=== PATIENT | female | born 1945 | race Caucasian/White ===

== ENCOUNTER 2019-02-07 06:51 | Day surgery (SDC) | payer MEDICARE, OTHER ==
[2019-02-06 13:23] VITALS: BMI 37.8
[2019-02-07 08:18] VITALS: BP 130/65; TEMP 97
--- NOTE | 2019-02-07 08:24 | RAD ---
FExam: 3 views cervical spine HISTORY: Cervical radiculopathy COMPARISON: None FINDINGS: Lateral flexion, lateral extension and lateral neutral views demonstrate moderate to severe degenerative disc disease at C3-C4, C4-C5 and C5-C6. The entirety of the cervical spine is not adequ ately assessed on this examination. Straightening of normal cervical adenosis. No significant spondylolisthesis. No malalignment upon ext ension or flexion Predental space is normal No prevertebral soft tissue swelling IMPRESSION: Multilevel degenerative disc disease in the visualized upper to mid cervical spine.
--- NOTE | 2019-02-07 08:37 | RAD ---
FXR Lumbar Spine 2 Or 3 View History: [Radiculopathy] Comparison: Lumbar spine CT December 29 2018 Findings: Mild degenerative narrowing of the disc spaces throughout the lumbar spine. There is also n arrowing of the interspinous spaces. No acute fracture. No translation with flexion or extension. No listhesis. Moderate vascular calcifications. Impression: No translation with flexion or extension. Moderate degenerative changes.
[2019-02-07] MEDS ORDERED: Prevnar 13-Val Conj/PF 0.5 ML SYRINGE IM ONE (09:00)
--- NOTE | 2019-02-07 09:14 | RAD ---
FExam: Cervical and lumbar myelogram Exposure: 1.3 minutes, 442.5 mGy*M^2 FINDINGS: Single view cervical spine and lumbar spine machine stacker radiographs demonstrate multilevel degene rative change. Successful lumbar puncture for intrathecal contrast administration. A total of 9 mL of Isovue-M 300 c ontrast was administered intrathecally. No immediate or postprocedure complications TECHNIQUE: Consent obtained to perform a lumbar puncture for cervical and lumbar myelogram. The L2-L3 level was deemed appropriate. Skin was prepped and draped in sterile fashion. 1% lidocaine, buffered with sodium bicarbonate, was used for local anesthesia. Under fluoroscopic guidance, a 22-gauge spin al needle was advanced into the CSF space. There was prompt flow of clear CSF to the hub of the needl e. Via a short tubing catheter, a total of 9 mL of Isovue-M 300 contrast was administered intrathecal ly. No immediate or postprocedure complications IMPRESSION: Successful lumbar puncture for cervical and thoracic myelogram. Transcribed Date/Time: 02/07/2019 9:28 AM
[2019-02-07] MEDS ORDERED: Iopamidol-M 300 61% 15 ML VIAL ONE (09:37)
--- NOTE | 2019-02-07 09:41 | CT ---
FExam: Post myelogram cervical spine CT HISTORY:Cervical radiculopathy. COMPARISON: None Colon Cervical spine CT is performed in the axial length. Three-dimensional reformatted images are submitte d FINDINGS: Visualized brain parenchyma is unremarkable Adequate aeration visualized sinuses Mass effect upon the posterior right hypopharynx due to medial deviation of the in internal carotid a rtery. There is mass effect upon the posterior left and right supraglottic larynx secondary to medial deviation of bilateral common carotid arteries Enlarged left level II lymph node/periparotid lymph node measuring 0.8 x 1.8 cm Upper mediastinum and lung apices are clear. Cervical spine vertebral body height is maintained. No fracture. Appropriate alignment of the latera l masses of C1 and C2 as well as the facets. Intact odontoid process C2-C3: Broad-based disc osteophyte complex. Mild central canal stenosis. Neural foramina are patent C3-C4: Broad-based disc osteophyte complex. Mild central canal stenosis. Neural foramina are patent C4-C5:Broad-based disc osteophyte complex. Deformity of the ventral thecal sac. Minimal indentation o f the ventral cord. Mild central canal stenosis. Right neural foramen is mildly narrowed due to uncal vertebral hypertrophy. Moderate to severe left foraminal narrowing due to uncal vertebral hypertroph y. C5-C6: Broad-based disc osteophyte complex abuts the thecal sac. Mild central canal stenosis. Neural foramina are patent C6-C7:No significant central canal stenosis. Right neural foramen is patent. Mild left foraminal narr owing. C7-T: No significant central canal stenosis or neural foraminal narrowing. IMPRESSION: 1.Degenerative changes of the cervical spine as detailed above. Moderate to severe left foraminal alva rowing at C4-C5. No evidence of high-grade central canal stenosis. Transcribed Date/Time: 02/07/2019 9:48 AM
--- NOTE | 2019-02-07 09:43 | CT ---
FContrast-enhanced CT images of chest, abdomen and pelvis. History of pancreatic tail mass. Comparison made to previous CT of the abdomen from 12/13/[address] chest from 11/29/2018. Contrast-enhanced CT images of chest, abdomen and pelvis demonstrates no definite evidence of lung pa renchymal masses. Areas of lung scarring seen in the right lower lobe posteriorly. The patient has had interval placement of a right jugular Mediport catheter. No evidence of mediastinal, axillary or hilar lymphadenopathy seen. There is interval development of a small amount of free intraperitoneal fluid. Anterior abdominal wall incision has been performed. Continues to be an area of ill-defined density in the pancreatic tail. This may represent postoperati ve changes or residual mass with surrounding fat invasion. The adrenal glands are unremarkable. Cortical cyst seen in the lower pole the left kidney. Some thickening seen in some of the small bowel loops possibly due to surrounding postoperative murray es and/or enteritis. No definite evidence of lymphadenopathy seen. IMPRESSION: Postsurgical changes involving the pancreatic tail.
== END 2019-02-07 10:20 | disposition home or self-care (01) ==
LOC: RAD 06:51 → EDSTATUS 08:00 → RAD 10:20
PROVIDERS: ATTEND Neurological Surgery
PROC: B01B1ZZ Fluoroscopy of Spinal Cord using Low Osmolar Contrast (ICD-10-PCS; principal; 2019-02-07)
DX: M47.22 Other spondylosis with radiculopathy, cervical region (principal); M50.11 Cervical disc disorder with radiculopathy, high cervical region; M47.26 Other spondylosis with radiculopathy, lumbar region; M48.061 Spinal stenosis, lumbar region without neurogenic claudication; E03.9 Hypothyroidism, unspecified; I10 Essential (primary) hypertension; J44.9 Chronic obstructive pulmonary disease, unspecified; F31.9 Bipolar disorder, unspecified; E66.9 Obesity, unspecified; Z68.37 Body mass index [BMI] 37.0-37.9, adult; Z87.891 Personal history of nicotine dependence; Z79.899 Other long term (current) drug therapy; Z95.0 Presence of cardiac pacemaker
CPT/HCPCS: 62305; 72040; 72100; 72126; 72132; Q9967

== ENCOUNTER 2019-04-06 05:56 | Inpatient (IN) | payer MEDICARE, OTHER ==
[2019-04-05 12:18] VITALS: BMI 36.3
--- NOTE | 2019-04-06 01:01 | HP ---
This is Eboni Castro PA-C dictating a report for Terry Win MD. HISTORY OF PRESENT ILLNESS: Ms. Rodriguez is a 73-year-old female who presents to our office for evaluation of low back pain, left greater than right leg pain. The patient states that in May, she tripped over the edge of a when started her low back pain and she has had SI injections, physical therapy, home health and she is using a walker since the original fall for imbalance. She states that her hands are working well, but denies neck pain. She has SI tenderness and greater trochanteric bursa pain. She states that following her injection, her back pain is feeling a little better. However, more recently, she is having L5 radiculopathy bilaterally, left greater than right, numbness, tingling and weakness in dorsiflexion of EHL. Her ability to walk safely is concerning. The results of her myelogram are back and she is still not walking for more than 15 yard nor standing for more than a minute before her legs hurt, feel weak or go numb. She is off balance . REVIEW OF SYSTEMS: A 10 point review of systems has been completed and is negative other than stated in the above HPI. PAST MEDICAL HISTORY: Arthritis, depression, and hypertension. PAST SURGICAL HISTORY: Denies surgical history. FAMILY HISTORY: Father is and diagnosed with heart disease. Mother is alive and diagnosed with hypertension. Children alive and diagnosed with hypertension. SOCIAL HISTORY: The patient is a former smoker. Denies alcohol, drug, or sexually active. MEDICATIONS: Bupropion, gabapentin, diazepam, Nexium, valsartan, amlodipine, Myrbetriq, and Abilify. ALLERGIES: NO KNOWN DRUG ALLERGIES. PHYSICAL EXAMINATION: CONSTITUTIONAL: Well appearing, well nourished, alert. NEUROLOGIC: Awake, alert, and oriented x3. Speech spontaneous and fluent. Normal fund of knowledge. Cranial nerves grossly intact. Gait and station, leaning forward to walk, grimaces after a while. Motor exam seated, there is normal strength in iliopsoas, quadriceps, hamstrings, anterior tib, EHL, gastroc, and toe flexors. Sensory, stocking-glove distribution sensory loss, but no dermatomal loss. RESPIRATORY: Normal work of breathing on room air. IMAGING DATA: Myelogram, critically severe L3-L4 stenosis with no CSF rim, severe stenosis L4-L5, moderate to severe at L5-L6 transitional, and flexion-extension L-spine stable. ASSESSMENT AND PLAN: Spinal stenosis of lumbar region with neurogenic claudication. Dr. Win has offered surgery of laminectomy L2 through L6. The patient has been consented. She states that she understands the risks and is willing to proceed with surgery. Job ID: [id number]
[2019-04-06] MEDS ORDERED: Thrombin 5000 UNITS/5 ML VIAL ONE (06:17)
[2019-04-06] MEDS ORDERED: Sodium Chloride 0.9% 20 ML ONE (06:17)
[2019-04-06] MEDS ORDERED: Bupivacaine HCl 0.5%/Epinephrine 1:200,000/PF 30 ml Vial ONE (06:17)
[2019-04-06 06:26] LABS: #Eosinphils 0.1 thou/uL (0.0-0.7); #Monocytes 0.6 thou/uL (0.11-0.59); #Neutrophils 5.5 thou/uL (1.40-6.50); %Basophils 0.4 % (0.0-1.0); %Lymphocytes 24.7 % (21.0-51.0); %Monocytes 6.7 % (0.0-10.0); %Neutrophils 67.2 % (42.0-75.0); Mean Corpuscular HGB CONC 32.5 g/dL (32.0-36.0); Mean Corpuscular Hemoglobin 31.2 pg (27.0-31.0); Mean Corpuscular Volume 96.1 fL (78.0-98.0); Mean Platelet Volume 7.4 fL (7.4-10.4); Platelet Count 338 thou/uL (130-400); RBC Distribution Width 13.4 % (11.5-14.5); Red Blood Cell (RBC) Count 4.15 mill/uL (4.20-5.40); White Blood Cell (WBC) Count 8.1 thou/uL (4.8-10.8)
[2019-04-06 06:32] LABS: PTT 31.2 SEC (22.9-36.1); Prothrombin Time 12.9 SEC (12.0-14.7)
[2019-04-06] MEDS ORDERED: Fentanyl 100 MCG/2 ML VIAL ONE ×3 (06:38→12:17)
[2019-04-06 06:43] LABS: Anion Gap 17 mmol/L (10-20); BUN (Urea Nitrogen) 11 mg/dL (9.8-20.1); Calc. Creatinine Clearance 76 mL/min (70-130); Calcium 10.8 mg/dL (7.8-10.44); Carbon Dioxide 24 mmol/L (23-31); Chloride 99 mmol/L (98-107); Estimated GFR-MDRD 49; Glucose 109 mg/dL (83-110); Potassium 4.7 mmol/L (3.5-5.1); Sodium 135 mmol/L (136-145)
[2019-04-06] MEDS ORDERED: Heparin 10,000 UNITS/1 ML VIAL ONE (09:36)
[2019-04-06] MEDS ORDERED: Phenylephrine HCL 10 MG/ML VIAL ONE (09:36)
[2019-04-06] MEDS ORDERED: Bisacodyl 10 MG SUPP PR PRN (10:44)
[2019-04-06] MEDS ORDERED: Mag-Al 1200 mg/1200 mg/30 ML UDCUP PO PRN (10:44)
[2019-04-06] MEDS ORDERED: Promethazine 25 MG TAB PO PRN (10:44)
[2019-04-06] MEDS ORDERED: Morphine 4 MG/ML VIAL SLOW IVP PRN (10:44)
[2019-04-06] MEDS ORDERED: Sodium Chloride 0.9% 1,000 ML IV SCH (10:45)
[2019-04-06] MEDS ORDERED: HYDROcodone/Acetaminophen 10/325 mg Tablet PO PRN (10:48)
[2019-04-06] MEDS ORDERED: Promethazine HCl 25 MG/ML VIAL IM PRN ×2 (11:05→12:00)
[2019-04-06] MEDS ORDERED: Ondansetron HCl/PF 4 MG/2 ML Vial IVP PRN (11:05)
[2019-04-06] MEDS ORDERED: diphenhydrAMINE 50 MG/ML VIAL IVP PRN (12:00)
[2019-04-06] MEDS ORDERED: tiZANidine HCl 4 MG TAB PO PRN (12:00)
[2019-04-06] MEDS ORDERED: diphenhydrAMINE 25 MG CAP PO PRN (12:00)
[2019-04-06] MEDS ORDERED: Ondansetron PF 4 MG/2 ML Vial IVP PRN (12:00)
[2019-04-06] MEDS ORDERED: Morphine 2 MG/ML SYRINGE SLOW IVP PRN (12:02)
[2019-04-06] MEDS ORDERED: Ondansetron PF 4 MG/2 ML Vial ONE (13:15)
[2019-04-06] MEDS ORDERED: Ketorolac Tromethamine 30 MG/ML VIAL ONE (13:15)
[2019-04-06] MEDS ORDERED: Lidocaine 2% PF 5 ML VIAL ONE (13:15)
[2019-04-06] MEDS ORDERED: Rocuronium Bromide 10 MG/ML (10ML VIAL) ONE (13:15)
[2019-04-06] MEDS ORDERED: ePHEDrine 50 MG/ML VIAL ONE (13:15)
[2019-04-06] MEDS ORDERED: PHENYLEPHRINE-NS 100 MCG/ML 10 ML SYRINGE ONE (13:15)
[2019-04-06] MEDS ORDERED: Metoclopramide HCl 10 MG/2 ML VIAL ONE (13:15)
[2019-04-06] MEDS ORDERED: Dexamethasone 20 MG/5 ML VIAL ONE (13:15)
[2019-04-06] MEDS ORDERED: Glycopyrrolate 0.2 MG/ML 5 ML SYRINGE ONE (13:15)
[2019-04-06] MEDS: CEFAZOLIN 2 GM in Premix Bag 1 BAG IVPB SCH ×2 (13:45→21:51)
[2019-04-06] MEDS: Acetaminophen 325 MG TAB PO PRN ×2 (14:24→18:10)
[2019-04-06] MEDS ORDERED: Diazepam 2 MG TAB PO PRN (15:00)
--- NOTE | 2019-04-06 15:44 | CON ---
DATE OF CONSULTATION: 04/06/2019 PRIMARY CARE PHYSICIAN: Dr. Vides. PRIMARY ATTENDING: Dr. Win. REASON FOR ADMISSION: Lumbar laminectomy. REASON FOR CONSULTATION: Medical comanagement. HISTORY OF PRESENT ILLNESS: This is a 73-year-old female, who has chronic low back pain from lumbar stenosis with radiculopathy. The patient was admitted by neurosurgeon for lumbar laminectomy. The patient had surgery earlier today and her pain is well controlled. Postprocedure, the patient is doing very well. The patient is medically stable. We are consulted after surgery for medical comanagement. The patient denies any chest pain, palpitation or shortness of breath. She denies any cough. REVIEW OF SYSTEMS: CONSTITUTIONAL: Negative for weight loss or gain, ability to conduct usual activities. SKIN: Negative for rash, itching. EYES: Negative for double vision, pain. ENT/MOUTH: Negative for nose bleeding, neck stiffness, pain, tenderness. CARDIOVASCULAR: Negative for palpitations, dyspnea on exertion, orthopnea. RESPIRATORY: Negative for shortness of breath, wheezing, cough, hemoptysis, fever or night sweats. GASTROINTESTINAL: Negative for poor appetite, abdominal pain, heartburn, nausea, vomiting, constipation, or diarrhea. GENITOURINARY: Negative for urgency, frequency, dysuria, nocturia. MUSCULOSKELETAL: Negative for pain, swelling. NEUROLOGIC/PSYCHIATRIC: Negative for anxiety, depression. ALLERGY/IMMUNOLOGIC: Negative for skin rash, bleeding tendency. Please see my HPI for pertinent positive and negative, all other review of systems reviewed and negative except as mentioned in HPI. PAST MEDICAL HISTORY: Obesity with BMI of 36, gout, hypertension, COPD, gastroesophageal reflux disease, chronic low back pain, lumbar stenosis, and hypothyroidism. PAST SURGICAL HISTORY: Status post lumbar laminectomy. PAST PSYCHIATRIC HISTORY: Anxiety and depression. FAMILY HISTORY: Father from heart disease. Mother has hypertension. SOCIAL HISTORY: The patient is a former smoker. She denies any tobacco, alcohol or illicit drug abuse. ALLERGIES: NO KNOWN DRUG ALLERGY. CURRENT HOME MEDICATIONS: 1. Ibuprofen 200 mg q.6 hourly p.r.n. 2. Allopurinol 300 mg daily. 3. Amlodipine 5 mg daily. 4. Abilify 10 mg daily. 5. Vitamin C 1000 mg p.o. daily. 6. Symbicort one puff inhalation b.i.d. 7. Wellbutrin XL 300 mg p.o. daily. 8. Vitamin D3 1000 units p.o. daily. 9. Vitamin B12 1000 mcg p.o. daily. 10. Diazepam 2 mg t.i.d. p.r.n. 11. Cymbalta 120 mg p.o. at bedtime. 12. Nexium 40 mg daily. 13. Gabapentin 300 mg p.o. at bedtime and 100 mg daily. 14. [place] p.r.n. 15. Synthroid 88 mcg p.o. daily. 16. Magnesium 400 mg b.i.d. 17. Mirabegron 50 mg daily. 18. Multivitamin 1 tablet daily. 19. Spiriva 18 mcg inhalation daily. 20. Diovan 80 mg p.o. daily. PHYSICAL EXAMINATION: VITAL SIGNS: Currently, blood pressure 117/80, pulse 72, respiratory rate 18, and saturation 99% on 2 L oxygen. Weight 225 pounds. GENERAL: The patient is currently alert and oriented, no acute distress. HEENT: Head; normocephalic and atraumatic. Eyes; pupils round and reactive to light, extraocular muscle intact. ENT, oropharynx within normal limits, moist mucous membranes, no oral lesion, no pharyngeal erythema, no exudate. NECK: Supple. No JVD. No thyromegaly. No carotid bruit. LUNGS: Clear without any rhonchi or rales. CARDIAC: S1 and S2 regular without any murmur. ABDOMEN: Soft. Obesity present. Bowel sounds present. EXTREMITIES: No edema. NEUROLOGIC: Grossly nonfocal examination. SIGNIFICANT LABORATORY DATA: CBC; WBC 8.1, hemoglobin 13.0, and platelet 338. INR 1.0. BMP, sodium 135, potassium 4.7, BUN 11, creatinine 1.10, and calcium 10.8. [facility] including lumbar spine CT scan, cervical spine CT scan, myelogram reviewed. Telemetry strips reviewed. ASSESSMENT/PLAN: 1. Lumbar stenosis with radiculopathy with chronic low back pain, status post lumbar laminectomy. Management as per primary team. Continue PT, OT, and pain control. 2. Chronic obstructive pulmonary disease without any exacerbation. We will continue Spiriva 18 mcg inhalation daily and Symbicort/Dulera 2 puffs inhalation b.i.d. 3. Gout. Continue allopurinol 300 mg p.o. daily. 4. Hypertension. Continue amlodipine 5 mg p.o. daily and valsartan 80 mg p.o. daily. Hold if blood pressure is less than 120 systolic. 5. Anxiety/depression. Continue Cymbalta 120 mg p.o. daily, Abilify 10 mg p.o. daily, and Wellbutrin XL 300 mg p.o. daily. 6. Gastroesophageal reflux disease. Continue Protonix 40 mg p.o. daily. 7. Hypothyroidism. Continue Synthroid 88 mcg p.o. daily. 8. Morbid obesity with body mass index of 36. Dietary education given. Weight loss education given. 9. Deep venous thrombosis prophylaxis with SCD boots. Gastroesophageal prophylaxis, Protonix 40 mg p.o. daily. CODE STATUS: The patient is full code. DISPOSITION PLAN: Based on clinical course. Thank you for consult. We will follow up with you while in hospital as needed. Job ID: [id number]
[2019-04-06] MEDS ORDERED: Sodium Chloride 0.9% 500 ML IV SCH (16:00)
--- NOTE | 2019-04-06 17:01 | OP ---
DATE OF PROCEDURE: 04/06/2019 BIOMEDICAL SERVICE ENGINEER: Eboni Castro PA-C. PREOPERATIVE INDICATION: Treat pain and prevent neurological deterioration. PREOPERATIVE DIAGNOSIS: Multilevel lumbar stenosis, severe, with neurogenic claudication. POSTOPERATIVE DIAGNOSIS: Multilevel lumbar stenosis, severe, with neurogenic claudication. OPERATIVE PROCEDURES: Decompressive laminectomy, medial facetectomy, foraminotomies, L2-L3, L3-L4, L4-L5, L5-L6 (transitional segment). PREOPERATIVE MEDICATION: Ancef 2 g IV. DRAIN NUMBER: Zero. DRAIN TYPE: None. DESCRIPTION OF PROCEDURE: The patient was brought to the operating room. General endotracheal anesthesia was induced. The patient was positioned prone on gel-filled chest rolls and a lateral fluoro-radiograph was used to plan our incision. The lumbar skin was sterilely prepped and draped. We made our midline incision with a 10 blade knife. We controlled bleeding with bipolar and monopolar cautery. We used monopolar cautery to dissect through subcutaneous tissues to the thoracodorsal fascia. We incised the fascia in the midline and reflected the paraspinal muscles off the spinous process and lamina of L2, L3, L4, L5, and L6 (the patient had 6 lumbar vertebrae or transitional segment at L6). Self-retaining retractors were placed. A lateral fluoro-radiograph was used to confirm the levels upon which we were operating. We then used Adson rongeur to remove the spinous processes and a Kerrison rongeur to fashion a laminectomy. The laminectomy extended from the inferior portion of the pedicles of T2 to the inferior portion of the pedicles of L6. We widened our laminectomy defect with Kerrison rongeurs by performing medial facetectomies. We removed overgrown facet joints and bone spurs in the lateral recesses. We performed foraminotomies over the exiting nerve roots. We completed our decompression once a ball probe could pass through the lateral recess and out the foramen with every nerve root we decompressed. This includes L2, L3, L4, L5, and S1 (L6) nerve roots on both sides. We then waxed the bone edges. We controlled epidural bleeding with gentle bipolar cautery. We brought the operative microscope into the field. Under microscopic magnification and using microsurgical techniques, we inspected an area of lucency in the dura on the right at L5-L6. This was perfectly round. Valsalva maneuver was administered and there was no CSF egress. We described the opening to the previous myelogram access site and since there was no CSF leak, we did not need reinforcement. I took the operative microscope back out of the field. We infused local anesthetic in the paraspinal muscles. We irrigated copiously with bacitracin irrigation. We treated the wound with vancomycin powder. We closed in anatomical layers and we applied a sterile dressing. This was a clean case, no contamination. Job ID: [id number]
[2019-04-06] MEDS: Sodium Chloride 0.9% 1,000 ML IV SCH (18:11)
[2019-04-06] MEDS: Mometasone/Formoterol 120 PUFF INHALER INH SCH (18:16)
[2019-04-06] MEDS: Magnesium Oxide 400 MG TAB PO SCH (19:56)
[2019-04-06] MEDS: DULoxetine 60 MG CAP PO SCH (19:56)
[2019-04-06] MEDS: Gabapentin 300 MG CAP PO SCH (19:56)
[2019-04-06] MEDS: Acetaminophen/Codeine 30-300mg Tablet PO PRN (20:45)
[2019-04-07] MEDS: Acetaminophen/Codeine 30-300mg Tablet PO PRN ×5 (00:32→21:17)
[2019-04-07] MEDS: Sodium Chloride 0.9% 1,000 ML IV SCH ×3 (05:40→18:39)
[2019-04-07] MEDS: Levothyroxine Sodium 88 MCG TAB PO SCH (05:40)
[2019-04-07] MEDS: Ipratropium Bromide 2.5 ml Neb NEB SCH (08:41)
[2019-04-07] MEDS: Mometasone/Formoterol 120 PUFF INHALER INH SCH ×2 (08:43→18:17)
[2019-04-07] MEDS ORDERED: Valsartan 80 MG TAB PO SCH (09:00)
[2019-04-07] MEDS ORDERED: Amlodipine 5 MG TAB PO SCH (09:00)
[2019-04-07] MEDS: Milk Of Magnesia 30 ML UDCUP PO PRN ×2 (09:42→21:16)
[2019-04-07] MEDS: Aripiprazole 10 MG TAB PO SCH (09:43)
[2019-04-07] MEDS: Bupropion 150 MG XL TAB PO SCH (09:43)
[2019-04-07] MEDS: Gabapentin 100 MG CAP PO SCH (09:44)
[2019-04-07] MEDS: Magnesium Oxide 400 MG TAB PO SCH ×2 (09:44→21:16)
[2019-04-07] MEDS: Cyanocobalamin (Vitamin B-12) 1,000 MCG TAB PO SCH (09:44)
[2019-04-07] MEDS: Allopurinol 300 MG TAB PO SCH (09:44)
--- NOTE | 2019-04-07 10:08 | PRG ---
DATE OF SERVICE: 04/07/2019 Ms. Rodriguez is one day out from a long segment lumbar decompression for severe lumbar stenosis. She is doing better than she expected to be doing. Her lower extremity symptoms have gone away. Her back is sore from surgery, but she expected that. She is up at the bedside chair and waiting for breakfast. She has gone for a walk, but not a very long one. She has no complaints. I do not see any fevers recorded in her electronic vital signs. Other vital signs have been stable. There is no new weakness in the lower extremities. Ms. Rodriguez will be mobilized this morning. She is making laps around the floor this afternoon and she is able to eat, urinate, dress herself, and complete all of her activities of daily living safely. She can be discharged. We went over home going wound care, activity restrictions, and followup arrangements will be made. If she needs another day in the hospital, she can go home tomorrow. Job ID: [id number] MTDD
[2019-04-07] MEDS: DULoxetine 60 MG CAP PO SCH (21:15)
[2019-04-07] MEDS: Gabapentin 300 MG CAP PO SCH (21:15)
[2019-04-08] MEDS: Sodium Chloride 0.9% 1,000 ML IV SCH ×2 (00:44→19:20)
[2019-04-08] MEDS: Acetaminophen/Codeine 30-300mg Tablet PO PRN ×3 (03:20→19:51)
[2019-04-08] MEDS: Bisacodyl 5 MG TAB PO PRN (03:30)
[2019-04-08] MEDS: Levothyroxine Sodium 88 MCG TAB PO SCH (06:49)
[2019-04-08] MEDS: Mometasone/Formoterol 120 PUFF INHALER INH SCH ×2 (07:11→18:34)
[2019-04-08] MEDS: Ipratropium Bromide 2.5 ml Neb NEB SCH (07:11)
[2019-04-08] MEDS: Cyanocobalamin (Vitamin B-12) 1,000 MCG TAB PO SCH (08:00)
[2019-04-08] MEDS: Aripiprazole 10 MG TAB PO SCH (08:00)
[2019-04-08] MEDS: Gabapentin 100 MG CAP PO SCH (08:01)
[2019-04-08] MEDS: Bupropion 150 MG XL TAB PO SCH (08:01)
[2019-04-08] MEDS: Allopurinol 300 MG TAB PO SCH (08:01)
[2019-04-08] MEDS: Magnesium Oxide 400 MG TAB PO SCH ×2 (08:01→19:47)
--- NOTE | 2019-04-08 10:22 | PRG ---
DATE OF SERVICE: 04/08/2019 I saw Liliam Rodriguez in our hospital room this morning. She is 3 days out from a long segment lumbar decompression. She is beginning to become independent for activities of daily living. Anticipated discharge if she meets her goals on independence. We will check an ultrasound of the legs to make sure she has no DVT before discharge. Job ID: [id number] MTDD
--- NOTE | 2019-04-08 15:57 | ULT ---
EXAM: Bilateral lower extremity venous duplex: Deep veins evaluated with color Doppler, spectral analysis, and compression. INDICATIONS: Bilateral lower extremity pain and edema. FINDINGS: Deep veins interrogated include common femoral vein, femoral vein, popliteal vein, and post erior tibial vein. These veins show normal compression and blood flow. No evidence of DVT. IMPRESSION: Negative Bilateral venous duplex exam.
[2019-04-08] MEDS: DULoxetine 60 MG CAP PO SCH (19:47)
[2019-04-08] MEDS: Gabapentin 300 MG CAP PO SCH (19:47)
[2019-04-08] MEDS ORDERED: Polyethylene Glycol 3350 17 GM Packet PO PRN (23:06)
[2019-04-09] MEDS: Sodium Chloride 0.9% 1,000 ML IV SCH ×3 (03:11→19:28)
[2019-04-09] MEDS: Acetaminophen/Codeine 30-300mg Tablet PO PRN ×3 (05:06→14:09)
[2019-04-09] MEDS: Levothyroxine Sodium 88 MCG TAB PO SCH (05:06)
[2019-04-09] MEDS: Ipratropium Bromide 2.5 ml Neb NEB SCH (06:45)
[2019-04-09] MEDS: Mometasone/Formoterol 120 PUFF INHALER INH SCH ×2 (06:47→18:19)
--- NOTE | 2019-04-09 07:03 | PRG ---
DATE OF SERVICE: 04/09/2019 Ms. Rodriguez is 3 days out from long segment lumbar decompression for severe neurogenic claudication from lumbar stenosis. She has made good progress over the weekend. Yesterday, was a bit of a setback with the less tolerance of being up and walking, but she feels like she is moving around better this morning. She has already been out of bed to the bathroom. Her vital signs overnight do not reveal any fevers and her blood pressures have been normal. I do not find any new deficits in her legs. Our plan is to move Ms. Rodriguez more aggressively this morning and when she is safe with all of her activities of daily living including getting in and out of bed, dressing, eating, toileting, and walking in the halls, then she can be discharged. If she needs help for any of these inpatient rehabilitation could be considered. Job ID: [id number]
[2019-04-09] MEDS: Milk Of Magnesia 30 ML UDCUP PO PRN (07:53)
[2019-04-09] MEDS: Bupropion 150 MG XL TAB PO SCH (07:55)
[2019-04-09] MEDS: Cyanocobalamin (Vitamin B-12) 1,000 MCG TAB PO SCH (07:57)
[2019-04-09] MEDS: Allopurinol 300 MG TAB PO SCH (07:57)
[2019-04-09] MEDS: Gabapentin 100 MG CAP PO SCH (07:57)
[2019-04-09] MEDS: Magnesium Oxide 400 MG TAB PO SCH ×2 (07:57→20:12)
[2019-04-09] MEDS: Cyclobenzaprine 10 MG TAB PO PRN (08:02)
[2019-04-09] MEDS: Aripiprazole 10 MG TAB PO SCH (08:02)
[2019-04-09] MEDS: guaiFENesin/DM ER PO PRN (14:10)
[2019-04-09] MEDS ORDERED: HYDROcodone/Acetaminophen 5/325 mg Tablet PO PRN (17:49)
[2019-04-09] MEDS: HYDROcodone/Acetaminophen 5/325 mg Tablet PO PRN (18:24)
[2019-04-09] MEDS: Gabapentin 300 MG CAP PO SCH (20:11)
[2019-04-09] MEDS: DULoxetine 60 MG CAP PO SCH (20:11)
[2019-04-09] MEDS: Bisacodyl 5 MG TAB PO PRN (20:12)
[2019-04-09] MEDS ORDERED: Clopidogrel Bisulfate 75 MG TAB ONE (22:24)
[2019-04-10] MEDS: HYDROcodone/Acetaminophen 5/325 mg Tablet PO PRN ×2 (00:19→08:19)
[2019-04-10] MEDS: guaiFENesin/DM ER PO PRN ×2 (01:50→15:35)
[2019-04-10] MEDS: Sodium Chloride 0.9% 1,000 ML IV SCH ×3 (04:07→18:49)
[2019-04-10] MEDS: Levothyroxine Sodium 88 MCG TAB PO SCH (05:34)
[2019-04-10] MEDS: Mometasone/Formoterol 120 PUFF INHALER INH SCH ×2 (06:17→18:29)
[2019-04-10] MEDS: Ipratropium Bromide 2.5 ml Neb NEB SCH (06:19)
[2019-04-10] MEDS: Bupropion 150 MG XL TAB PO SCH (08:18)
[2019-04-10] MEDS: Cyanocobalamin (Vitamin B-12) 1,000 MCG TAB PO SCH (08:18)
[2019-04-10] MEDS: Aripiprazole 10 MG TAB PO SCH (08:18)
[2019-04-10] MEDS: Allopurinol 300 MG TAB PO SCH (08:19)
[2019-04-10] MEDS: Magnesium Oxide 400 MG TAB PO SCH ×2 (08:19→21:11)
[2019-04-10] MEDS: Gabapentin 100 MG CAP PO SCH (08:19)
[2019-04-10] MEDS: Acetaminophen/Codeine 30-300mg Tablet PO PRN ×5 (09:40→22:49)
[2019-04-10] MEDS: DULoxetine 60 MG CAP PO SCH (21:11)
[2019-04-10] MEDS: Gabapentin 300 MG CAP PO SCH (21:11)
[2019-04-11] MEDS: Sodium Chloride 0.9% 1,000 ML IV SCH ×3 (02:32→16:00)
[2019-04-11] MEDS: Acetaminophen/Codeine 30-300mg Tablet PO PRN ×6 (04:12→23:33)
[2019-04-11] MEDS: Levothyroxine Sodium 88 MCG TAB PO SCH (04:13)
[2019-04-11] MEDS: Mometasone/Formoterol 120 PUFF INHALER INH SCH ×2 (07:11→18:39)
[2019-04-11] MEDS: Ipratropium Bromide 2.5 ml Neb NEB SCH (07:12)
--- NOTE | 2019-04-11 09:47 | PRG ---
DATE OF SERVICE: 04/11/2019 Ms. Rodriguez is now postop day #5 from long segment lumbar laminectomy. She is mobilizing, and she is getting up and walking to the door and back at least 5 times a day if not more. This makes her feel better for inpatient rehabilitation. I think she is ready for transfer. Arrangements will be made for that to happen. Job ID: [id number]
[2019-04-11] MEDS: Aripiprazole 10 MG TAB PO SCH (10:26)
[2019-04-11] MEDS: Bupropion 150 MG XL TAB PO SCH (10:26)
[2019-04-11] MEDS: Cyclobenzaprine 10 MG TAB PO PRN ×2 (10:27→19:24)
[2019-04-11] MEDS: Cyanocobalamin (Vitamin B-12) 1,000 MCG TAB PO SCH (10:27)
[2019-04-11] MEDS: Allopurinol 300 MG TAB PO SCH (10:28)
[2019-04-11] MEDS: Magnesium Oxide 400 MG TAB PO SCH ×2 (10:28→20:08)
[2019-04-11] MEDS: Gabapentin 100 MG CAP PO SCH (10:28)
[2019-04-11] MEDS: DULoxetine 60 MG CAP PO SCH (20:07)
[2019-04-11] MEDS: Gabapentin 300 MG CAP PO SCH (20:08)
[2019-04-12] MEDS: Sodium Chloride 0.9% 1,000 ML IV SCH ×2 (00:31→10:59)
[2019-04-12] MEDS: Ipratropium Bromide 2.5 ml Neb NEB SCH (06:28)
[2019-04-12] MEDS: Mometasone/Formoterol 120 PUFF INHALER INH SCH (06:31)
[2019-04-12] MEDS: Levothyroxine Sodium 88 MCG TAB PO SCH (06:39)
[2019-04-12] MEDS: Acetaminophen/Codeine 30-300mg Tablet PO PRN ×3 (06:40→11:56)
[2019-04-12] MEDS: Magnesium Oxide 400 MG TAB PO SCH (08:29)
[2019-04-12] MEDS: Allopurinol 300 MG TAB PO SCH (08:29)
[2019-04-12] MEDS: Bupropion 150 MG XL TAB PO SCH (08:29)
[2019-04-12] MEDS: Gabapentin 100 MG CAP PO SCH (08:29)
[2019-04-12] MEDS: Cyanocobalamin (Vitamin B-12) 1,000 MCG TAB PO SCH (08:30)
[2019-04-12] MEDS: Cyclobenzaprine 10 MG TAB PO PRN (09:14)
[2019-04-12] MEDS: Aripiprazole 10 MG TAB PO SCH (09:14)
--- NOTE | 2019-04-12 11:34 | PRG ---
DATE OF SERVICE: 04/12/2019 Ms. Rodriguez is 6 days out from lumbar decompression. She is ready for transfer to inpatient rehabilitation yesterday, that was not available. She will hopefully make the move today. She is doing well. Her incision looks good. Her activity level is slowly increasing with time. She is not quite safe for activities of daily living on her own and therefore rehab will be good for her. Job ID: [id number]
[2019-04-12 11:55] VITALS: BP 113/61; TEMP 98.1
[2019-04-12] MEDS: HYDROcodone/Acetaminophen 5/325 mg Tablet PO PRN (13:59)
== END 2019-04-12 14:00 | DRG 517 ==
LOC: SDC 05:56 → SURG A 10:44
PROVIDERS: ADMIT Neurological Surgery; ATTEND Neurological Surgery
PROC: 01NB0ZZ Release Lumbar Nerve, Open Approach (ICD-10-PCS; principal; 2019-04-06)
DX: M48.062 Spinal stenosis, lumbar region with neurogenic claudication (principal); M19.91 Primary osteoarthritis, unspecified site; F32.9 Major depressive disorder, single episode, unspecified; M54.16 Radiculopathy, lumbar region; I10 Essential (primary) hypertension; M10.9 Gout, unspecified; J44.9 Chronic obstructive pulmonary disease, unspecified; K21.9 Gastro-esophageal reflux disease without esophagitis; E03.9 Hypothyroidism, unspecified; F41.9 Anxiety disorder, unspecified; E66.01 Morbid (severe) obesity due to excess calories; Z68.36 Body mass index [BMI] 36.0-36.9, adult; Z87.891 Personal history of nicotine dependence; Z79.899 Other long term (current) drug therapy
CPT/HCPCS: 36415; 76000; 80048; 85025; 85610; 85730; 93970; J0131; J0670; J0690; J1100; J1644; J1885; J2001; J2270; J2370; J2405; J2765; J3010; J3370; J3490

== ENCOUNTER 2019-08-06 18:06 | Observation (INO) | payer MEDICARE, OTHER ==
[2019-08-06] MEDS ORDERED: Lorazepam 2 MG/ML VIAL ONE (18:43)
[2019-08-06] MEDS ORDERED: Morphine 4 MG/ML VIAL ONE (18:46)
[2019-08-06 18:48] LABS: #Lymphocytes 2.4 thou/uL (1.20-3.40); #Monocytes 1.2 thou/uL (0.11-0.59); #Neutrophils 10.5 thou/uL (1.40-6.50); %Basophils 0.3 % (0.0-1.0); %Eosinophils 0.3 % (0.0-10.0); %Lymphocytes 17.1 % (21.0-51.0); %Monocytes 8.1 % (0.0-10.0); %Neutrophils 74.2 % (42.0-75.0); Hemoglobin 13.9 g/dL (12.0-16.0); Mean Corpuscular HGB CONC 33.4 g/dL (32.0-36.0); Mean Corpuscular Hemoglobin 29.9 pg (27.0-31.0); Mean Corpuscular Volume 89.6 fL (78.0-98.0); Mean Platelet Volume 7.3 fL (7.4-10.4); Platelet Count 540 thou/uL (130-400); RBC Distribution Width 14.2 % (11.5-14.5); Red Blood Cell (RBC) Count 4.66 mill/uL (4.20-5.40); White Blood Cell (WBC) Count 14.2 thou/uL (4.8-10.8)
[2019-08-06 19:10] LABS: ALT (SGPT) 37 U/L (8-55); AST (SGOT) 24 U/L (5-34); Alkaline Phosphatase 108 U/L (40-110); Anion Gap 14 mmol/L (10-20); BUN (Urea Nitrogen) 28 mg/dL (9.8-20.1); Bilirubin, Total 0.6 mg/dL (0.2-1.2); CK (CPK) 188 U/L (29-168); Calc. Creatinine Clearance 0 mL/min (70-130); Calcium 10.3 mg/dL (7.8-10.44); Carbon Dioxide 26 mmol/L (23-31); Chloride 96 mmol/L (98-107); Estimated GFR-MDRD 40; Globulin 2.7 g/dL (2.4-3.5); Glucose 98 mg/dL (83-110); Lipase 22 U/L (8-78); Potassium 5.2 mmol/L (3.5-5.1); Protein, Total 6.7 g/dL (6.0-8.3); Sodium 131 mmol/L (136-145)
[2019-08-06 21:14] VITALS: BMI 35.6
[2019-08-06] MEDS ORDERED: Morphine 4 MG/ML VIAL SLOW IVP PRN (21:21)
[2019-08-06] MEDS ORDERED: Lorazepam 2 MG/ML VIAL SLOW IVP PRN (21:22)
[2019-08-06] MEDS ORDERED: Ondansetron PF 4 MG/2 ML Vial IVP PRN ×2 (21:23→23:03)
[2019-08-06] MEDS ORDERED: Ondansetron ODT 4 MG TAB SL PRN (21:23)
[2019-08-06] MEDS ORDERED: Senokot S 8.6-50 MG TAB PO PRN (23:03)
[2019-08-06] MEDS ORDERED: Ondansetron ODT 4 MG TAB PO PRN (23:03)
[2019-08-06] MEDS ORDERED: Acetaminophen/Codeine 30-300mg Tablet PO PRN (23:05)
--- NOTE | 2019-08-06 23:49 | PDOC.HHP ---
Hospitalist HPI - History of Present Illness Back pain History of Present Illness: Patient reports back pain, worsening for the last 2 weeks. States she was able to walk with her walker, but has had increasing difficulty mobilizing due to lower back pain, with pain radiating from left buttock down the back of her leg to her foot. She describes this as shooting pain. At present does not have discomfort due to receiving Morphine in the ER. She states she feels groggy from the Morphine. Reports having burning sensation in her left foot which is chronic. Denies any muscle weakness in her legs or numbness. No incontinence of urine or stool. Reports she has been urinating without any dysuria or hematuria. Does report decreased intake for the last week due to the pain. She is status post recent laminectomy by Dr. Win and denies any falls since her surgery. Reports pain is worse than pain she had prior to surgery. ED Course: In the ED she had labs done which were notable for an elevated WCC of 14.2, CRP was 1.16. Her renal function is worse than baseline, creatinine was 1.3, GFR 40 (in the 60s previously). She was also noted to have a potassium of 5.2. For her pain she received Morphine 4 mg IV. Also was given 1 L of normal saline as well as Ativan 1 mg IV. A consult was placed to Dr. Win. Hospitalist ROS - Review of Systems Constitutional: denies: fever, chills, sweats, weakness, malaise, other Eyes: denies: pain, vision change, conjunctivae inflammation, eyelid inflammation, redness, other ENT: denies: ear pain, ear discharge, nose pain, nose discharge, nose congestion , mouth pain, mouth swelling, throat pain, throat swelling, other Respiratory: denies: cough, dry, shortness of breath, hemoptysis, SOB with excertion, pleuritic pain, sputum, wheezing, other Cardiovascular: denies: chest pain, palpitations, orthopnea, paroxysmal noc. dyspnea, edema, light headedness, other Gastrointestinal: reports: other (decreased appetite due to pain). denies: nausea, vomiting, abdominal pain, diarrhea, constipation, melena, hematochezia Genitourinary: denies: dysuria, frequency, incontinence, hematuria, retention, other Musculoskeletal: reports: back pain, leg pain (left leg to her foot), foot pain (left foot) Skin: denies: rash, lesions, ray, bruising, other Hospitalist History - Past Medical History Cardiac: reports: HTN Psych: reports: Bipolar Musculoskeletal: reports: Chronic low back pain, Other (Sciatica) Endocrine: reports: Hypothyroidism - Past Surgical History Past Surgical History: reports: Appendectomy, Hysterectomy, Tonsillectomy, Other (Laminectomy) - Family History Family History: reports: no pertinent history - Social History Smoking Status: Never smoker Alcohol: reports: None Drugs: reports: none Living Situation: With Family Activity level: uses cane/walker - Exam General Appearance: NAD (Found resting comfortably, easily woken but falling asleep during assessment) Eye: PERRL, anicteric sclera ENT: normocephalic atraumatic Neck: supple, no lymphadenopathy Heart: RRR, no murmur Respiratory: CTAB, no wheezes, no rales Gastrointestinal: soft, non-distended, normal bowel sounds, tender to palpation (mild suprapubic discomfort with palpation) Extremities: no cyanosis, no edema Skin: normal turgor, no lesions, no rashes Neurological - other findings: weakness in left leg against resistance due to pain, otherwise normal ROM Musculoskeletal: normal tone, no muscle wasting Psychiatric: A&O x 3, oriented to person, oriented to place, somnolent Hospitalist Results - Labs Result Diagrams: 08/06/19 18:37 08/06/19 18:37 Lab results: WBC 14.2 thou/uL (4.8-10.8) H 08/06/19 18:37 Hgb 13.9 g/dL (12.0-16.0) 08/06/19 18:37 Hct 41.8 % (36.0-47.0) 08/06/19 18:37 MCV 89.6 fL (78.0-98.0) 08/06/19 18:37 Plt Count 540 thou/uL (130-400) H 08/06/19 18:37 Neutrophils % 74.2 % (42.0-75.0) 08/06/19 18:37 ESR Westergren 29 mm/hr (Less than 30) 08/06/19 18:37 Sodium 131 mmol/L (136-145) L 08/06/19 18:37 Potassium 5.2 mmol/L (3.5-5.1) H 08/06/19 18:37 Chloride 96 mmol/L (98-107) L 08/06/19 18:37 Carbon Dioxide 26 mmol/L (23-31) 08/06/19 18:37 BUN 28 mg/dL (9.8-20.1) H 08/06/19 18:37 Creatinine 1.30 mg/dL (0.6-1.1) H 08/06/19 18:37 Glucose 98 mg/dL (83-110) 08/06/19 18:37 Calcium 10.3 mg/dL (7.8-10.44) 08/06/19 18:37 Total Bilirubin 0.6 mg/dL (0.2-1.2) 08/06/19 18:37 AST 24 U/L (5-34) 08/06/19 18:37 ALT 37 U/L (8-55) 08/06/19 18:37 Alkaline Phosphatase 108 U/L (40-110) 08/06/19 18:37 Creatine Kinase 188 U/L (29-168) H 08/06/19 18:37 C-Reactive Protein 1.16 mg/dL (= or < 0.5) H 08/06/19 18:37 Serum Total Protein 6.7 g/dL (6.0-8.3) 08/06/19 18:37 Albumin 4.0 g/dL (3.4-4.8) 08/06/19 18:37 Lipase 22 U/L (8-78) 08/06/19 18:37 Hospitalist H&P A/P - Problem (1) Leukocytosis Code(s): D72.829 - ELEVATED WHITE BLOOD CELL COUNT, UNSPECIFIED Status: Acute Assessment and Plan: [facility] 14, continue to monitor. Add-on procalcitonin and lactic acid. UA/UCx. Afebrile at present. (2) Back pain with left-sided sciatica Code(s): M54.32 - SCIATICA, LEFT SIDE Status: Acute Assessment and Plan: Laminectomy 2.[address] Win who has been consulted. Further imaging as per his recommendations. Currently no evidence of cauda equina. PT/OT consulted. Pain currently controlled. Post void bladder scan to ensure not having urinary retention. Mills catheter if retaining. (3) Hyperkalemia Code(s): E87.5 - HYPERKALEMIA Status: Acute Assessment and Plan: Mildly elevated. Has received IVF. Will repeat electrolytes. (4) [id number] kidney injury Code(s): N17.9 - ACUTE KIDNEY FAILURE, UNSPECIFIED; N18.9 - CHRONIC KIDNEY DISEASE, UNSPECIFIED Status: Acute Assessment and Plan: Gentle hydration, has had minimal intake x 2 weeks. Renal ultrasound. UA/UCx. (5) Hypertension Code(s): I10 - ESSENTIAL (PRIMARY) HYPERTENSION Status: Chronic Assessment and Plan: Resume home meds. Monitor BP. (6) Hypothyroidism Code(s): E03.9 - HYPOTHYROIDISM, UNSPECIFIED Status: Chronic Assessment and Plan: Resume home meds. - Plan Plan: GI Prophylaxis: Resume protonix. DVT Prophylaxis: Mechanical SCDs. Code status: FULL. Surrogate decision maker: Sugar Garcia, her daughter.
[2019-08-07 00:07] LABS: Bilirubin Negative (Negative); Blood, Urine Negative (Negative); Clarity Clear (Clear); Glucose, Urine (Dipstick) Normal (Negative); Leukocyte Negative Leu/uL (Negative); Nitrite Negative (Negative); Protein, Urine (Dipstick) 20 mg/dL (Neg-Trace); Squamous Epithelial 0-3 HPF (0-3); Urobilinogen Normal mg/dL (Less than 2); WBC/HPF 0-3 HPF (0-3)
[2019-08-07 00:10] LABS: Bacteria/HPF 1+ HPF (None Seen)
[2019-08-07] MEDS: Sodium Chloride 0.9% 1,000 ML IV SCH ×2 (00:12→19:26)
[2019-08-07 00:30] LABS: Lactic Acid 0.9 mmol/L (0.5-2.2)
[2019-08-07] MEDS: HYDROcodone/Acetaminophen 10/325 mg Tablet PO PRN (05:14)
[2019-08-07 06:47] LABS: #Eosinphils 0.1 thou/uL (0.0-0.7); #Lymphocytes 2.7 thou/uL (1.20-3.40); #Monocytes 1.2 thou/uL (0.11-0.59); %Basophils 0.1 % (0.0-1.0); %Eosinophils 0.4 % (0.0-10.0); %Lymphocytes 18.2 % (21.0-51.0); %Monocytes 8.2 % (0.0-10.0); %Neutrophils 73.1 % (42.0-75.0); Hemoglobin 13.5 g/dL (12.0-16.0); Mean Corpuscular HGB CONC 32.4 g/dL (32.0-36.0); Mean Corpuscular Hemoglobin 29.4 pg (27.0-31.0); Mean Corpuscular Volume 90.9 fL (78.0-98.0); Mean Platelet Volume 7.6 fL (7.4-10.4); Platelet Count 530 thou/uL (130-400); RBC Distribution Width 14.5 % (11.5-14.5); Red Blood Cell (RBC) Count 4.58 mill/uL (4.20-5.40)
[2019-08-07 07:09] LABS: Anion Gap 14 mmol/L (10-20); BUN (Urea Nitrogen) 27 mg/dL (9.8-20.1); Calc. Creatinine Clearance 74 mL/min (70-130); Calcium 9.5 mg/dL (7.8-10.44); Carbon Dioxide 20 mmol/L (23-31); Chloride 100 mmol/L (98-107); Estimated GFR-MDRD 49; Glucose 104 mg/dL (83-110); Potassium 5.1 mmol/L (3.5-5.1); Sodium 129 mmol/L (136-145)
[2019-08-07] MEDS ORDERED: Famotidine/PF 20 mg/2ml Vial SLOW IVP SCH (09:00)
[2019-08-07] MEDS: Aripiprazole 10 MG TAB PO SCH (09:18)
[2019-08-07] MEDS: Levothyroxine Sodium 88 MCG TAB PO SCH (09:18)
[2019-08-07] MEDS: Ascorbic Acid 500 mg Chewable Tablet PO SCH (09:18)
[2019-08-07] MEDS: Bupropion 150 MG XL TAB PO SCH (09:18)
[2019-08-07] MEDS: Gabapentin 100 MG CAP PO SCH (09:18)
[2019-08-07] MEDS: Amlodipine 5 MG TAB PO SCH (09:18)
[2019-08-07] MEDS: Valsartan 80 MG TAB PO SCH (09:18)
[2019-08-07] MEDS: Cyanocobalamin (Vitamin B-12) 1,000 MCG TAB PO SCH (09:19)
[2019-08-07] MEDS: Allopurinol 300 MG TAB PO SCH (09:19)
[2019-08-07] MEDS: tiZANidine HCl 4 MG TAB PO PRN (14:51)
--- NOTE | 2019-08-07 17:47 | PDOC.HOSPP ---
- Subjective Encounter Date: 08/07/19 Encounter Time: 17:46 Subjective: Patient lying in bed, she reports pain better controlled. She denies any chest pain, shortness of breath or abdominal pain. Pantoja in place and draining well. She reports when she was having pain she noticed in mainly on left side with radiation down left leg - Objective Vital Signs & Weight: Vital Signs (12 hours) Temp Pulse Resp BP BP Pulse Ox 08/07/19 09:18 113 H 163/87 H 08/07/19 08:00 97.6 F 113 H 20 163/87 H 95 Weight Weight 221 lb I&O: 08/06/19 08/07/19 08/08/19 06:59 06:59 06:59 Intake Total 501.5 Output Total 600 Balance -98.5 Result Diagrams: 08/07/19 06:11 08/07/19 06:11 Radiology Reviewed by me: Yes Hospitalist ROS - Review of Systems Constitutional: denies: fever, chills Eyes: denies: pain, vision change ENT: denies: ear pain, nose congestion, throat swelling Respiratory: denies: cough, dry, shortness of breath Cardiovascular: denies: chest pain, palpitations Gastrointestinal: denies: nausea, vomiting, abdominal pain Genitourinary: reports: retention Musculoskeletal: reports: back pain, leg pain, foot pain. denies: neck pain, shoulder pain Skin: denies: rash, lesions Neurological: reports: numbness. denies: weakness All other systems reviewed; all pertinent +/- noted in HPI/Subj - Medication Medications: Active Medications Generic Name Dose Route Start Last Admin Trade Name Freq PRN Reason Stop Dose Admin Hydrocodone Bitart/Acetaminophen 1 tab 08/06/19 23:05 08/07/19 05:14 [place] 10/325 PO 1 tab DAILYPRN PRN Administration Severe Pain (7-10) Allopurinol 300 mg 08/07/19 09:00 08/07/19 09:19 Zyloprim PO 300 mg DAILY ALLAN Administration Amlodipine Besylate 5 mg 08/07/19 09:00 08/07/19 09:18 Norvasc PO 5 mg DAILY ALLAN Administration Aripiprazole 10 mg 08/07/19 09:00 08/07/19 09:18 Abilify PO 10 mg DAILY ALLAN Administration Ascorbic Acid 1,000 mg 08/07/19 09:00 08/07/19 09:18 Vitamin C PO 1,000 mg DAILY ALLAN Administration Bupropion HCl 300 mg 08/07/19 09:00 08/07/19 09:18 Wellbutrin Xl PO 300 mg QAM ALLAN Administration Cholecalciferol 1,000 units 08/07/19 09:00 08/07/19 09:18 Vitamin D3 PO 1,000 units DAILY ALLAN Administration Cyanocobalamin 1,000 mcg 08/07/19 09:00 08/07/19 09:19 Vitamin B-12 PO 1,000 mcg DAILY ALLAN Administration Gabapentin 100 mg 08/07/19 09:00 08/07/19 09:18 Neurontin PO 100 mg DAILY ALLAN Administration Sodium Chloride 1,000 mls @ 65 mls/hr 08/06/19 23:15 08/07/19 00:12 Normal Saline 0.9% IV 1,000 mls .[id number] ALLAN Administration Levothyroxine Sodium 88 mcg 08/07/19 09:00 08/07/19 09:18 Synthroid PO 88 mcg DAILY ALLAN Administration Mirabegron 50 mg 08/07/19 09:00 08/07/19 09:18 Myrbetriq Er PO 50 mg DAILY ALLAN Administration Pantoprazole Sodium 40 mg 08/07/19 09:00 08/07/19 09:18 Protonix PO 40 mg DAILY ALLAN Administration Tizanidine HCl 4 mg 08/06/19 23:05 08/07/19 14:51 Zanaflex PO 4 mg TID PRN Administration Muscle Spasm Valsartan 80 mg 08/07/19 09:00 08/07/19 09:18 Diovan PO 80 mg DAILY ALLAN Administration - Exam General Appearance: NAD, awake alert Eye: PERRL ENT: normocephalic atraumatic, no oropharyngeal lesions Neck: supple, symmetric Heart: RRR, no murmur Respiratory: CTAB, no wheezes Gastrointestinal: soft, non-tender, normal bowel sounds Extremities: no cyanosis Skin: normal turgor Neurological: cranial nerve grossly intact, no new deficit Musculoskeletal: normal tone, generalized weakness Psychiatric: normal affect, A&O x 3 Hosp A/P (1) Hyponatremia Code(s): E87.1 - HYPO-OSMOLALITY AND HYPONATREMIA Status: Acute (2) Back pain with left-sided sciatica Code(s): M54.32 - SCIATICA, LEFT SIDE Status: Acute (3) Hypertension Code(s): I10 - ESSENTIAL (PRIMARY) HYPERTENSION Status: Chronic (4) Hypothyroidism Code(s): E03.9 - HYPOTHYROIDISM, UNSPECIFIED Status: Chronic - Plan old records reviewed/req Case discussed with neurosurgery who did not recommend further imaging or surgical intervention at this time Symptomatic control and pantoja care Recheck BMP in morning to monitor sodium levels Monitor BP and other vitals Will consider discharge in the next 1-2 days if pain stable and she will need close follow up as outpatient with neurosurgery
[2019-08-07] MEDS: Gabapentin 300 MG CAP PO SCH (20:51)
[2019-08-07] MEDS: DULoxetine 60 MG CAP PO SCH (20:51)
[2019-08-08] MEDS: tiZANidine HCl 4 MG TAB PO PRN ×3 (05:08→19:32)
[2019-08-08] MEDS: Sodium Chloride 0.9% 1,000 ML IV SCH (05:09)
[2019-08-08] MEDS: Valsartan 80 MG TAB PO SCH (09:02)
[2019-08-08] MEDS: Aripiprazole 10 MG TAB PO SCH (09:03)
[2019-08-08] MEDS: Cyanocobalamin (Vitamin B-12) 1,000 MCG TAB PO SCH (09:03)
[2019-08-08] MEDS: Gabapentin 100 MG CAP PO SCH (09:03)
[2019-08-08] MEDS: Bupropion 150 MG XL TAB PO SCH (09:03)
[2019-08-08] MEDS: Ascorbic Acid 500 mg Chewable Tablet PO SCH (09:04)
[2019-08-08] MEDS: Amlodipine 5 MG TAB PO SCH (09:04)
[2019-08-08] MEDS: Allopurinol 300 MG TAB PO SCH (09:05)
[2019-08-08] MEDS: Levothyroxine Sodium 88 MCG TAB PO SCH (09:06)
[2019-08-08] MEDS: HYDROcodone/Acetaminophen 10/325 mg Tablet PO PRN ×2 (10:11→19:31)
[2019-08-08] MEDS: traMADol HCl 50 MG TAB PO PRN ×3 (10:58→20:32)
--- NOTE | 2019-08-08 13:02 | CT ---
CT LUMBAR SPINE WITHOUT CONTRAST: INDICATIONS: Lumbar surgery in April 2019. Back pain and lower extremity pain. COMPARISON: CT lumbar spine from 02/07/2019. TECHNIQUE: Axial tomograms obtained with multiplanar reconstruction. FINDINGS: There is a transitional vertebrae, which was designated as L6 on the prior study. 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 This transitional vertebra will be designated as S1 on today's study, indicating lumbarization of the first sacral vertebra. There has been postop change since the prior study with laminectomy changes noted posteriorly from L2 -L3 through L5-S1. Degenerative disk changes at L5-S1 are more pronounced today. There is vacuum phenomenon with gas in this disk space. There is superior endplate compression of the S1 vertebra, which has occurred since the prior exam, with gas density seen within the vertebral body along the superior endplate. This may represent an acute or subacute endplate compression. Slight anterolisthesis at L5-S1 is a new findin g. Broad-based disk bulges are again seen at the L2-L3, L3-L4, L4-L5 and L5-S1 levels. Posterior laminec nathan changes are present, which prevent significant central canal stenosis. Foraminal narrowing at L2 -L3, L3-L4 and L4-L5 is present due to diffuse disk bulge and facet hypertrophy, encroaching into the foramina at these levels. IMPRESSION: 1. 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 2. There are new degenerative disk changes at the L5-S1 disk space when vacuum phenomena. There is ne w superior endplate compression of this S1 vertebra with gas density within the vertebral body, along the superior endplate. Findings suggest possible acute or subacute superior endplate compression whi ch has developed since the prior examination. Slight anterolisthesis at L5-S1 is now present. POS: OFF
--- NOTE | 2019-08-08 14:19 | PDOC.HOSPP ---
- Subjective Encounter Date: 08/08/19 Encounter Time: 14:17 Subjective: Severe back pain causing her to cry. PT was on hold due to pain - Objective Vital Signs & Weight: Vital Signs (12 hours) Temp Pulse Resp BP BP Pulse Ox 08/08/19 09:04 92 139/75 08/08/19 07:54 98 F 92 17 139/75 92 L Weight Weight 221 lb I&O: 08/07/19 08/08/19 08/09/19 06:59 06:59 06:59 Intake Total 501.5 Output Total 600 1350 Balance -98.5 -1350 Result Diagrams: 08/07/19 06:11 08/07/19 06:11 Radiology Reviewed by me: Yes EKG Reviewed by me: Yes Hospitalist ROS - Medication Medications: Active Medications Generic Name Dose Route Start Last Admin Trade Name Freq PRN Reason Stop Dose Admin Hydrocodone Bitart/Acetaminophen 1 tab 08/06/19 23:05 08/08/19 10:11 [place] 10/325 PO 1 tab DAILYPRN PRN Administration Severe Pain (7-10) Allopurinol 300 mg 08/07/19 09:00 08/08/19 09:05 Zyloprim PO 300 mg DAILY ALLAN Administration Amlodipine Besylate 5 mg 08/07/19 09:00 08/08/19 09:04 Norvasc PO 5 mg DAILY ALLAN Administration Aripiprazole 10 mg 08/07/19 09:00 08/08/19 09:03 Abilify PO 10 mg DAILY ALLAN Administration Ascorbic Acid 1,000 mg 08/07/19 09:00 08/08/19 09:04 Vitamin C PO 1,000 mg DAILY ALLAN Administration Bupropion HCl 300 mg 08/07/19 09:00 08/08/19 09:03 Wellbutrin Xl PO 300 mg QAM ALLAN Administration Cholecalciferol 1,000 units 08/07/19 09:00 08/08/19 09:04 Vitamin D3 PO 1,000 units DAILY ALLAN Administration Cyanocobalamin 1,000 mcg 08/07/19 09:00 08/08/19 09:03 Vitamin B-12 PO 1,000 mcg DAILY ALLAN Administration Duloxetine HCl 120 mg 08/07/19 21:00 08/07/19 20:51 Cymbalta PO 120 mg HS ALLAN Administration Gabapentin 100 mg 08/07/19 09:00 08/08/19 09:03 Neurontin PO 100 mg DAILY ALLAN Administration Gabapentin 300 mg 08/07/19 21:00 08/07/19 20:51 Neurontin PO 300 mg HS ALLAN Administration Levothyroxine Sodium 88 mcg 08/07/19 09:00 08/08/19 09:06 Synthroid PO 88 mcg DAILY ALLAN Administration Mirabegron 50 mg 08/07/19 09:00 08/08/19 09:03 Myrbetriq Er PO 50 mg DAILY ALLAN Administration Pantoprazole Sodium 40 mg 08/07/19 09:00 08/08/19 09:04 Protonix PO 40 mg DAILY ALLAN Administration Tizanidine HCl 4 mg 08/06/19 23:05 08/08/19 12:38 Zanaflex PO 4 mg TID PRN Administration Muscle Spasm Tramadol HCl 50 mg 08/08/19 10:45 08/08/19 10:58 Ultram PO 50 mg Q4H PRN Administration Pain Valsartan 80 mg 08/07/19 09:00 08/08/19 09:02 Diovan PO 80 mg DAILY ALLAN Administration - Exam General Appearance: NAD, awake alert, ill appearing Eye: PERRL, anicteric sclera, scleral icterus ENT: normocephalic atraumatic, no oropharyngeal lesions, moist mucosa, dry oral mucosa Neck: supple, symmetric, no JVD, no thyromegaly, no lymphadenopathy, no carotid bruit, JVD Heart: RRR, no murmur, no gallops, no rubs, normal peripheral pulses, irregular , diminshed peripheral pulses, murmur present, II/IV, III/IV Respiratory: CTAB, no wheezes, no rales, no ronchi, normal chest expansion, no tachypnea, normal percussion, rales, rhonchi, tachypneic, wheezes Gastrointestinal: soft, non-tender, non-distended, normal bowel sounds, no palpable masses, no hepatomegaly, no splenomegaly, no bruit, no guarding, no rigidity, tender to palpation, distended, diminished bowl sounds, voluntary guarding Extremities: no cyanosis, no clubbing, no edema, 1+ LE edema, 2+ LE edema, clubbing Neurological: cranial nerve grossly intact, normal sensation to touch, no weakness Hosp A/P (1) Back pain with left-sided sciatica Code(s): M54.32 - SCIATICA, LEFT SIDE Status: Acute - Plan plan discussed w/ family (spke to daughter and explainesd as well.) Ct L spine was ordered for further evaluation. MRI is contraindicated due to a metal in the bladder. CT shows a compression fracture, neuro surgery consulted and notified.
[2019-08-08] MEDS: Morphine 2 MG/ML SYRINGE SLOW IVP PRN ×2 (16:24→22:34)
[2019-08-08] MEDS: DULoxetine 60 MG CAP PO SCH (20:31)
[2019-08-08] MEDS: Gabapentin 300 MG CAP PO SCH (20:31)
[2019-08-09] MEDS: traMADol HCl 50 MG TAB PO PRN ×3 (00:54→09:11)
--- NOTE | 2019-08-09 01:55 | CON ---
DATE OF CONSULTATION: This is Jhon Bey PA-C dictating a report for Siddhartha Hogan MD. This is a 50-minute initial patient evaluation of which greater than 50% of the exam was spent counseling and coordinating the patient's care. Remainder of the exam was spent in review of the patient's medical records and review of appropriate imaging studies. CHIEF COMPLAINT: Low back pain with bilateral hip and left lateral thigh and lateral calf pain. HISTORY OF PRESENT ILLNESS: Ms. Rodriguez is a 74-year-old female who presents to [facility] for the above complaints. Apparently, the patient has history of undergoing L2 through L6 laminectomies with Dr. Win in March of 2019. The patient states she did fairly well postoperatively, but over the past 2 weeks has complained of progressive significant worsening of low back, bilateral hip, lateral thigh and lateral calf pain with paresthesias. She denies any falls. She states she underwent several injections by Pain Management in [facility], but I am unclear what levels were targeted and if she actually had epidural steroid injection versus lumbar facet injections. The patient notes only a few hours if any relief. She has been unable to participate in physical therapy secondary to intense pain. She states her pain is worse with weightbearing. The leg pain is in the same distribution as what it was preoperatively, although she notes that it is worse at this time. She has a bladder stimulator as well as a pacemaker and it appears the pacemaker was placed in roughly 2001. She is not currently on any blood thinners. She is unable to get an MRI secondary to the pacemaker and bladder stimulator. Review of the patient's lumbar spine CT from today shows what appears to be an L2 spinous process fracture. I will call the L6 region really a lumbar lie sacrum, and referred to this as S1. It does appear that there may be a fracture of the endplate at S1 without any retropulsion of the canal. There does not appear to be any malalignment of the fracture nor does there appear to be any significant malalignment of the lumbar spine. PHYSICAL EXAMINATION: The patient is awake, alert, and appropriate. She has full strength in the bilateral lower extremities with the exception of left hamstring and iliac psoas weakness secondary to pain. She has intact sensation to light touch throughout. She does not appear to have any significant tenderness to palpation of the bilateral greater trochanteric bursa. Her GCS is 15. She is somewhat tearful through the exam secondary to pain. IMPRESSION DIAGNOSES: 1. Status post multilevel lumbar laminectomies in March [address] Win. 2. Recurrent low back and left lower extremity pain. 3. L2 spinous process fracture. 4. Possible S1 endplate compression fracture, atraumatic. PLAN: At this time, we will update Dr. Win and [facility] team in regard to the patient's symptoms. We may be dealing with some left lower extremity radiculitis and the patient would likely benefit from a targeted L5 epidural steroid injection as was ordered by Dr. Win on an outpatient basis in July of 2019. Therefore at this point in time, we will maximize the patient's conservative management and discuss the possibility of repeat imaging with Dr. Win and Eboni. The patient has noted that she increased taking her gabapentin to 300 mg at night and we will ensure that she is on this at this time as she states there may have been some improvement in her symptoms. No further testing is required at this time. We appreciate our medical colleagues helping us manage this patient. Please call with any changes in patient's neurologic status. Job ID: [id number]
[2019-08-09] MEDS: Morphine 2 MG/ML SYRINGE SLOW IVP PRN ×2 (02:53→08:00)
[2019-08-09] MEDS: tiZANidine HCl 4 MG TAB PO PRN (05:16)
[2019-08-09] MEDS: Gabapentin 100 MG CAP PO SCH (08:39)
[2019-08-09] MEDS: Ascorbic Acid 500 mg Chewable Tablet PO SCH (08:39)
[2019-08-09] MEDS: Levothyroxine Sodium 88 MCG TAB PO SCH (08:39)
[2019-08-09] MEDS: Aripiprazole 10 MG TAB PO SCH (08:39)
[2019-08-09] MEDS: Bupropion 150 MG XL TAB PO SCH (08:39)
[2019-08-09] MEDS: Amlodipine 5 MG TAB PO SCH (08:39)
[2019-08-09] MEDS: Allopurinol 300 MG TAB PO SCH (08:39)
[2019-08-09] MEDS: Valsartan 80 MG TAB PO SCH (08:39)
[2019-08-09] MEDS: Cyanocobalamin (Vitamin B-12) 1,000 MCG TAB PO SCH (08:43)
[2019-08-09] MEDS ORDERED: traMADol HCl 50 MG TAB PO PRN (09:46)
--- NOTE | 2019-08-09 11:30 | PRG ---
DATE OF SERVICE: 08/09/2019 This is a 50-minute initial hospital visit note, in which 50 minutes were spent reviewing the imaging record, evaluation, examination of the patient, and formulation of plan. Greater than 50% time was spent in counseling on Liliam Rodriguez, 1945. CHIEF COMPLAINT: New onset left greater than right lower extremity pain with extension in [id number], likely lower lumbosacral radiculopathy. SUBJECTIVE: Ms. Rodriguez is a 74-year-old woman, who following end of March 2019 had multilevel lumbar decompression from L2 to L6 by my colleague, Dr. Win. She did exceptionally well. She is doing well. She states up until July 22 when she developed the acute onset of left greater than right lower extremity pain, which went into the buttocks, the hip, and the lateral thighs and below the knee into the lateral lower leg, calves, and feet. Again, this was left greater than right. She was recently admitted for this pain, and in review of the CT scan compared to the CT myelogram from February demonstrates a well decompressed canal based on CT assessment, but what appears to be new onset pars fractures at L5 and L6 with grade 1 spondylolisthesis and superior endplate fracture at L6. On exam, she appears to be comfortable, resting in bed, and is quite alert and appropriate. She has full strength throughout her lower extremity myotomes. No tenderness to palpation over her trochanteric bursa bilaterally. IMPRESSION AND PLAN: I have let the patient know my suspicion is this new change in her mechanical alignment likely led to the acute onset of the low back pain and now stenosis likely at the L5 and L6 segment. Again, we do not have a myelogram, but I would advocate that we arrange for an LSO brace, which we have now ordered to be worn when she is out of bed. We will also get Physical Therapy to see her to begin mobilizing her and I will reach out to my colleagues and pain management to see if they can do an L5-L6 interlaminar epidural steroid injection to try and calm the inflammation of the nerve roots down with a followup with Dr. Win when he is in Nursery. Dr. Win is coming on the call for coverage for Neurosurgery and he is aware of the patient. I think holding off on pursuing a CT myelogram at least at this point would be advantageous simply because myelography makes it very difficult to assess the foraminal stenotic nature and it is better for central and lateral recess. This way by injection and bracing we can try diagnostically and therapeutically help her symptoms. DIAGNOSES: 1. Low back and left greater than right lower extremity pain with potential lower lumbar recurrent stenosis. 2. L5 spondylolysis. 3. L6 superior endplate fracture. Job ID: [id number]
--- NOTE | 2019-08-09 12:01 | PDOC.HOSPP ---
- Subjective Encounter Date: 08/09/19 Encounter Time: 12:00 Subjective: still c/o pain back - Objective Vital Signs & Weight: Vital Signs (12 hours) Temp Pulse Resp BP BP Pulse Ox 08/09/19 08:39 73 139/80 08/09/19 07:53 98.1 F 73 18 139/80 92 L Weight Weight 221 lb I&O: 08/08/19 08/09/19 08/10/19 06:59 06:59 06:59 Intake Total 1460 Output Total 1350 1800 Balance -1350 -340 Result Diagrams: 08/07/19 06:11 08/07/19 06:11 Hospitalist ROS - Medication Medications: Active Medications Generic Name Dose Route Start Last Admin Trade Name Freq PRN Reason Stop Dose Admin Hydrocodone Bitart/Acetaminophen 1 tab 08/06/19 23:05 08/08/19 19:31 [place] 10/325 PO 1 tab DAILYPRN PRN Administration Severe Pain (7-10) Allopurinol 300 mg 08/07/19 09:00 08/09/19 08:39 Zyloprim PO 300 mg DAILY ALLAN Administration Amlodipine Besylate 5 mg 08/07/19 09:00 08/09/19 08:39 Norvasc PO 5 mg DAILY ALLAN Administration Aripiprazole 10 mg 08/07/19 09:00 08/09/19 08:39 Abilify PO 10 mg DAILY ALLAN Administration Ascorbic Acid 1,000 mg 08/07/19 09:00 08/09/19 08:39 Vitamin C PO 1,000 mg DAILY ALLAN Administration Bupropion HCl 300 mg 08/07/19 09:00 08/09/19 08:39 Wellbutrin Xl PO 300 mg QAM ALLAN Administration Cholecalciferol 1,000 units 08/07/19 09:00 08/09/19 08:43 Vitamin D3 PO 1,000 units DAILY ALLAN Administration Cyanocobalamin 1,000 mcg 08/07/19 09:00 08/09/19 08:43 Vitamin B-12 PO 1,000 mcg DAILY ALLAN Administration Duloxetine HCl 120 mg 08/07/19 21:00 08/08/19 20:31 Cymbalta PO 120 mg HS ALLAN Administration Gabapentin 100 mg 08/07/19 09:00 08/09/19 08:39 Neurontin PO 100 mg DAILY ALLAN Administration Gabapentin 300 mg 08/07/19 21:00 08/08/19 20:31 Neurontin PO 300 mg HS ALLAN Administration Levothyroxine Sodium 88 mcg 08/07/19 09:00 08/09/19 08:39 Synthroid PO 88 mcg DAILY ALLAN Administration Mirabegron 50 mg 08/07/19 09:00 08/09/19 08:38 Myrbetriq Er PO 50 mg DAILY ALLAN Administration Morphine Sulfate 2 mg 08/08/19 16:07 08/09/19 08:00 Morphine SLOW IVP 2 mg Q4H PRN Administration Pain Pantoprazole Sodium 40 mg 08/07/19 09:00 08/09/19 08:40 Protonix PO 40 mg DAILY ALLAN Administration Tizanidine HCl 4 mg 08/06/19 23:05 08/09/19 05:16 Zanaflex PO 4 mg TID PRN Administration Muscle Spasm Tramadol HCl 50 mg 08/08/19 10:45 08/09/19 09:11 Ultram PO 50 mg Q4H PRN Administration Pain Valsartan 80 mg 08/07/19 09:00 08/09/19 08:39 Diovan PO 80 mg DAILY ALLAN Administration - Exam General Appearance: NAD, awake alert, ill appearing Eye: PERRL, anicteric sclera, scleral icterus ENT: normocephalic atraumatic, no oropharyngeal lesions, moist mucosa, dry oral mucosa Neck: supple, symmetric, no JVD, no thyromegaly, no lymphadenopathy, no carotid bruit, JVD Heart: RRR, no murmur, no gallops, no rubs, normal peripheral pulses, irregular , diminshed peripheral pulses, murmur present, II/IV, III/IV Respiratory: CTAB, no wheezes, no rales, no ronchi, normal chest expansion, no tachypnea, normal percussion, rales, rhonchi, tachypneic, wheezes Gastrointestinal: soft, non-tender, non-distended, normal bowel sounds, no palpable masses, no hepatomegaly, no splenomegaly, no bruit, no guarding, no rigidity, tender to palpation, distended, diminished bowl sounds, voluntary guarding Extremities: no cyanosis, no clubbing, no edema, 1+ LE edema, 2+ LE edema, clubbing Skin: normal turgor, no lesions, no rashes, tenting Neurological: cranial nerve grossly intact, normal sensation to touch, no weakness, no focal deficits, no new deficit, facial droop, hemiplegia, speech deficit, vision deficit Hosp A/P (1) Back pain with left-sided sciatica Code(s): M54.32 - SCIATICA, LEFT SIDE Status: Acute - Plan Ct L spine was ordered for further evaluation. MRI is contraindicated due to a metal in the bladder. CT shows a compression fracture, neuro surgery consulted and notified.nerosurgery input apreciated. PT, await rehab vs SNF placement.
[2019-08-09] MEDS ORDERED: Lidocaine 2% MPF 10 ML AMP (For Epidural Use) ONE (13:22)
[2019-08-09] MEDS ORDERED: Bupivacaine 0.25% 10 ML VIAL ONE (13:22)
[2019-08-09] MEDS ORDERED: Iopamidol-M 200 41% 20 ML VIAL ONE (13:22)
--- NOTE | 2019-08-09 15:52 | PDOC.EVN ---
Event Note - Event Note Event Note: Case was discussed with Dr. Hewitt. 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 Agree with the plan to make Observation.
[2019-08-09] MEDS: HYDROcodone/Acetaminophen 10/325 mg Tablet PO PRN (18:28)
[2019-08-09 19:40] VITALS: BP 140/70; TEMP 98
--- NOTE | 2019-08-10 03:52 | DIS ---
DATE OF ADMISSION: 08/06/2019 DATE OF DISCHARGE: 08/09/2019 CONSULTANTS: Neurosurgery, Dr. Win. HOSPITAL COURSE: The patient is admitted. Conservative management was recommended by Dr. Win's team. We obtained a CT of the L-spine, shows possible compression fracture. Neurosurgery Team recommended conservative management, perhaps epidural injection. The patient was continued on pain medications and physical therapy was advanced and as patient is inquiring rehab, it has been concluded to transfer the patient to a rehab care as per the recommendations of Neurosurgery Team. DISCHARGE INSTRUCTIONS: Transfer patient to rehab unit under rehab physician as well as internal medicine physician. DISCHARGE MEDICATIONS: As per reconciliation sheet. DIET: Regular. ACTIVITY: As per physical therapy team. Further management as per the Rehab Team and Neurosurgery Team. Job ID: [id number]
--- NOTE | 2019-08-10 10:59 | OP ---
DATE OF PROCEDURE: 08/09/2019 PROCEDURE PERFORMED: Left L5 transforaminal epidural steroid injection. DESCRIPTION OF PROCEDURE: Informed consent was obtained. The patient was advised of the procedure and informed of potential complications. The patient denied any recent fever, infection, use of anticoagulation medications, or . Prep: The patient was placed in a prone position. Fluoroscopic guidance was used to identify the appropriate spinal level. ChloraPrep was used topically for antisepsis. Anesthesia provided with 1% lidocaine locally. Procedures performed at the left L5-S1 level. Procedure: 25-gauge Chiba needle was then passed to the foramina using oblique approach. A lateral view was checked to determine needle depth and advance to the superior aspect of the foramen. AP projection confirmed placement just below the mid pedicle line. Isovue contrast was injected to confirmed proper placement. Next, after negative aspiration, a mixture of Depo-Medrol 80 mg plus 1 mL of 0.25% Marcaine plus preservative-free normal saline, total volume of 3 mL was injected easily. Postprocedure, the patient was monitored. Following the procedure, vital signs and neurologic status were assessed. The patient tolerated the procedure well. Job ID: [id number]
== END 2019-08-09 19:25 ==
LOC: ERS 18:06 → T4-B 19:26 → OBSVTOIN 08-08 10:35 → INTOOBSV 08-08 10:35
PROVIDERS: ADMIT Family Medicine; ATTEND Family Medicine
PROC: 3E0R33Z Introduction of Anti-inflammatory into Spinal Canal, Percutaneous Approach (ICD-10-PCS; principal; 2019-08-06)
DX: G89.29 Other chronic pain (principal); M54.42 Lumbago with sciatica, left side; D72.829 Elevated white blood cell count, unspecified; I12.9 Hypertensive chronic kidney disease with stage 1 through stage 4 chronic kidney disease, or unspecified chronic kidney disease; N18.9 Chronic kidney disease, unspecified; N17.9 Acute kidney failure, unspecified; E03.9 Hypothyroidism, unspecified; E87.5 Hyperkalemia; F31.9 Bipolar disorder, unspecified; Z79.899 Other long term (current) drug therapy; Z98.890 Other specified postprocedural states
CPT/HCPCS: 51701; 64483; 72131; 80048; 80053; 81001; 82550; 83605; 83690; 83735; 84145; 85025 ×2; 85652; 86140; 96361 ×3; 96374; 96375; 96376 ×3; 97116 ×2; 97139 ×6; 97530; 97535; 99284; G0378 ×5; 36415; J1040; J2001; J2060; J2270; Q9966; S0020

== ENCOUNTER 2020-03-28 07:44 | Day surgery (SDC) | payer MEDICARE, OTHER ==
[2020-03-27 14:38] VITALS: BMI 31.8
--- NOTE | 2020-03-28 09:05 | RAD ---
Exam: 3 VIEWS LUMBAR SPINE: COMPARISON: 02/07/2019. FINDINGS: Severe loss of vertebral body height with vertebroplasty change at the L6 level. Current no menclature is based upon lumbar spine CT 02/07/2019 which states six lumbar-type vertebra. In the neutral position, 0.9 cm of anterolisthesis of L6 upon S1. Upon extension, 1.3 mm of anterolisthesis of L5 upon S1. Upon flexion, 1.6 mm of anterolisthesis of L6 upon S1. Evaluation is limited due to diffuse bone demineralization. Better evaluation with a lumbar spine CT is recommended. IMPRESSION: Grade 2 anterolisthesis of L6 upon S1 with worsening listhesis upon both flexion and exte nsion. Transcribed Date/Time: 03/28/2020 9:12 AM
--- NOTE | 2020-03-28 09:15 | RAD ---
CERVICAL SPINE 3 VIEWS: Neutral, flexion, and extension views obtained. Comparison made to films of 02/07/2019. HISTORY: Neck pain FINDINGS: There are moderately severe degenerative changes again noted in the cervical spine. Loss of disc spac e is seen at all levels, most severe at C3-4, C4-5, C5-6, and C6-7. Slight anterolisthesis at C3-4 ag ain noted. Posterior spondylosis is prominent at C4-5. There is a slight posterolisthesis at C4-5 ass ociated with this spondylosis. No significant change in alignment with flexion or extension. The degenerative changes appear stable when compared to 02/07/2019. IMPRESSION: Stable degenerative changes of cervical spine. POS: AGW
[2020-03-28] MEDS ORDERED: Iopamidol-M 300 61% 15 ML VIAL ONE (10:08)
[2020-03-28 11:29] VITALS: BP 150/59; TEMP 97.2
--- NOTE | 2020-03-28 13:28 | CT ---
CT lumbar spine with contrast: (CT lumbar myelogram) DATE: 03/28/2020 HISTORY: 74-year-old female with severe low back pain and bilateral lumbar radiculopathy. COMPARISON: Noncontrast CT of 08/08/2019 TECHNIQUE: There is a transitional vertebra at the lumbosacral junction. For the purposes of this report, the la st rib-bearing vertebra will be designated as T12. The transitional level at the lumbosacral junction will be designated as L6 (this is different from the designation used on the prior report). T12-L1: Essentially normal. L1-2: Minimal disc bulge. Disc space maintained. No central spinal canal stenosis. Mild bilateral jonnathan ral foraminal stenosis. L2-3: Minimal disc bulge. No central stenosis. No high-grade disc space narrowing. Mild bilateral jonnathan ral foraminal stenosis. Conus medullaris terminates at upper L3 level. L3-4: Midline laminectomy defect beginning at upper L3 level. Generous caliber of spinal canal and th ecal sac. Diffuse calcified disc bulge encroaches upon bilateral neural foramina causing mild to moderate right neural foraminal stenosis and moderate left neural foraminal stenosis. Minimal anterol isthesis of L3 on L4. Mild disc space narrowing. Probably no major interval change. L4-5: Mild disc space narrowing. Mild disc bulge. Midline laminectomy defect. Moderate bilateral face t DJD and diffuse partially calcified disc bulge results in moderate right neural foraminal stenosis and severe left neural foraminal stenosis, somewhat similar to prior study. No thecal sac st enosis at the disc space level. However, there is extremely severe central spinal canal stenosis throughout the L5 level up to the upper L5 level for reasons described below. L5-L6: Previously, there was a compression fracture of the superior endplate of L6. That has further severely collapsed, such that the anterior two thirds of the vertebral body has completely collapsed into vertebra plana, except for a methylmethacrylate -filled far anterior triangular fragme nt of bone that measures approximately 2 x 1.5 x 3 cm, which is anteriorly displaced slightly toward the prevertebral space. The severe interval collapse of that vertebral body has resulted in in terval worsening of the previously demonstrated mild grade 1 anterolisthesis of L5 on S1 that was due to bilateral L5 pars interarticularis defects. Now, this is a grade 2 anterolisthesis. Furthermor e, because of the collapse, the L5 vertebral body has migrated caudally into the defect caused by the collapse, with inferior endplates surface now located caudal to the L6 pedicle level. This has re sulted in extremely severe central spinal canal stenosis such that no contrast material is visible within the spinal canal at this level, and there is extremely severe compression of cauda equina radha use of this. The spinal canal is filled with soft tissue density material.. Severe right neural foraminal stenosis filled with soft tissue density material. Extremely severe bony left neural forami nal stenosis, a new finding since the previous CT. L6-S1: Right-sided conjoined nerve root filled with intrathecal contrast material. No central spinal canal stenosis. Mild to moderate bilateral neural foraminal stenosis, similar to previous CT. IMPRESSION: 1. Transitional level at lumbosacral junction: L6. 2. Interval development of new severe collapse of the anterior two thirds of the L6 vertebral body, w hich previously had mild compression fracture, and the vertebroplasty sometime after the previous CT. 3. This collapse has resulting in interval severe worsening of the previously demonstrated spondyloli sthesis of L5 on L6 (that was due to bilateral L5 spondylolysis), which is now a grade 2 spondylolisthesis. Furthermore, there has been foreshortening in the craniocaudal distance, such that there is approximately 50% craniocaudal overlap between L5 vertebral body and the remaining posterior one third of the L6 vertebral body. 4. The above new changes have resulted in extremely severe central spinal canal stenosis at L5-6, wit h spinal block and extremely severe compression of cauda equina nerve roots. 5. There has been consequently worsening of severe neural foraminal stenosis, most notably extremely severe on the left at L5-6,, severe on the right at L5-6, and severe on the left at L4-5.
--- NOTE | 2020-03-28 14:00 | CT ---
CT cervical spine with contrast: (CT cervical myelogram) 03/28/2020 HISTORY: 74-year-old female with cervical spondylosis. COMPARISON: 02/07/2019 FINDINGS: There are numerous mildly enlarged upper mediastinal and cervical lymph nodes. These were also presen t on previous study. There is tortuosity and medialization of bilateral common carotid and internal carotid arteries which course through the retropharyngeal space, especially the left, which crosses t he midline to the right side. No spondylolisthesis. Vertebral body heights are maintained. C1-2: No high-grade central spinal canal stenosis. C2-3: Mild central spinal canal stenosis. Moderate right facet DJD. Mild left facet DJD. No neural fo raminal stenosis. C3-4: Moderate to severe disc space narrowing with endplate irregularities and endplate marginal oste ophytes that encroach upon the anterior aspect of spinal canal, especially on the left, and this indents the spinal cord slightly greater than on the previous CT apparently greater degree of now mod erate to severe central spinal canal stenosis. Mild bilateral facet DJD. Mild bilateral neural foraminal stenosis. C4-5: Broad-based disco-osteophyte complex indents spinal cord as previously demonstrated. Severe eleonora tral spinal canal stenosis. Mild right neural foraminal stenosis. Severe left neural foraminal stenosis due to left uncinate process osteophytes. Mild facet DJD. Moderate degenerative disc disease . C5-6: No high-grade facet DJD. Broad-based disc-osteophyte complex indents the spinal cord. Moderate to severe central spinal canal stenosis. No high-grade neural foraminal stenosis. C6-7: Central and bilateral paracentral disc osteophyte complex abuts spinal cord. Moderate to severe central spinal canal stenosis. No right neural foraminal stenosis. Moderate left neural foraminal stenosis. No high-grade facet DJD. C7-T1: No high-grade facet DJD. No high-grade central spinal canal stenosis or high-grade neural fora lorena stenosis. IMPRESSION: 1. Cervical spondylosis with multilevel mild and moderate degenerative disc disease. 2. Multilevel high-grade central spinal canal stenosis.
--- NOTE | 2020-03-28 16:07 | CT ---
CT-guided myelogram lumbar: DATE: 03/28/2020 HISTORY: 74-year-old female with severe low back pain and bilateral lumbar radiculopathy. TECHNIQUE: Signed informed consent obtained. Patient placed prone on CT table. Skin posterior to lumbosacral juanito ction was prepared and draped in usual sterile fashion. 25-gauge needle used to was used to apply buffered lidocaine superficially. 22-gauge spinal needle was incrementally advanced under step CT migdalia dance at midline through the laminectomy defect at the L6 level. A total of 10 mL of Isovue-M 300 was slowly injected intrathecally. Needle was removed. Patient tolerated the procedure reasonably wel l. No complication. The patient was taken to fluoroscopy room, where she was placed in prone Trendelenburg position to allow the contrast material to flow into the cervical spine, for subsequent CT myelogram of the C-spine as well. She was then taken back to CT, for CT myelograms of the cervical spine and lumbar spine. IMPRESSION: 1. Successful CT-guided lumbar puncture and myelogram. 2. Extremely severe stenosis at L5-6 and very severe neural foraminal stenosis, due to interval devel opment of severe total collapse of the anterior two thirds of the L6 vertebral body, resulting in worsening of the L5-L6 spondylolisthesis, which is now grade 2, plus foreshortening in the craniocaud al dimension between L5 and L6.
--- NOTE | 2020-03-28 16:09 | RAD ---
Myelogram cervical: DATE: 03/28/2020 HISTORY: 74-year-old female with cervical spondylosis and severe low back pain with lumbar radiculopathy. TECHNIQUE: After lumbar puncture under CT guidance, and intrathecal injection of 10 mL of Isovue-M 300 at the L6 level, the patient was brought to fluoroscopy, where she was placed in prone Trendelenburg position, to allow contrast to flow into the cervical spine. The patient was then taken back to CT fo r CT myelograms of the cervical spine and lumbar spine. Patient tolerated procedure well. IMPRESSION: Successful maneuver for the cervical myelogram. See separate reports of the CT myelograms of the lumbar spine and cervical spine.
== END 2020-03-28 11:00 | disposition home or self-care (01) ==
LOC: RAD 07:44
PROVIDERS: ATTEND Neurological Surgery
PROC: B01B1ZZ Fluoroscopy of Spinal Cord using Low Osmolar Contrast (ICD-10-PCS; principal; 2020-03-28)
DX: M50.31 Other cervical disc degeneration, high cervical region (principal); M47.812 Spondylosis without myelopathy or radiculopathy, cervical region; M48.02 Spinal stenosis, cervical region; M43.16 Spondylolisthesis, lumbar region; M47.26 Other spondylosis with radiculopathy, lumbar region; M48.061 Spinal stenosis, lumbar region without neurogenic claudication; J44.9 Chronic obstructive pulmonary disease, unspecified; I10 Essential (primary) hypertension; F31.9 Bipolar disorder, unspecified; E03.9 Hypothyroidism, unspecified; K21.9 Gastro-esophageal reflux disease without esophagitis; M19.90 Unspecified osteoarthritis, unspecified site; Z87.891 Personal history of nicotine dependence; Z79.899 Other long term (current) drug therapy; Z95.0 Presence of cardiac pacemaker
CPT/HCPCS: 62305; 72040; 72100; 72126; 72132; 77002; Q9967

== ENCOUNTER 2021-01-19 23:17 | Inpatient (IN) | payer MEDICARE, OTHER ==
[2021-01-20 00:12] LABS: Anion Gap 17 mmol/L (10-20); BUN (Urea Nitrogen) 22 mg/dL (9.8-20.1); Calc. Creatinine Clearance 0 mL/min (70-130); Calcium 10.3 mg/dL (7.8-10.44); Carbon Dioxide 17 mmol/L (23-31); Chloride 101 mmol/L (98-107); Glucose 87 mg/dL (83-110); Potassium 6.3 mmol/L (3.5-5.1); Sodium 129 mmol/L (136-145)
[2021-01-20] MEDS ORDERED: Sodium Bicarbonate 150 MEQ in Dextrose 5% in Water 850 ML IV SCH (01:30)
[2021-01-20 02:53] LABS: #Eosinphils 0.5 thou/uL (0.0-0.7); #Lymphocytes 2.1 thou/uL (1.20-3.40); #Monocytes 1.3 thou/uL (0.11-0.59); #Neutrophils 6.2 thou/uL (1.40-6.50); %Basophils 0.3 % (0.0-1.0); %Eosinophils 4.7 % (0.0-10.0); %Monocytes 12.6 % (0.0-10.0); %Neutrophils 61.3 % (42.0-75.0); Hemoglobin 11.6 g/dL (12.0-16.0); Mean Corpuscular HGB CONC 32.6 g/dL (32.0-36.0); Mean Corpuscular Hemoglobin 30.7 pg (27.0-31.0); Mean Corpuscular Volume 93.9 fL (78.0-98.0); Mean Platelet Volume 6.9 fL (7.4-10.4); Platelet Count 443 thou/uL (130-400); RBC Distribution Width 15.1 % (11.5-14.5); White Blood Cell (WBC) Count 10.2 thou/uL (4.8-10.8)
[2021-01-20 03:02] LABS: Anion Gap 15 mmol/L (10-20); BUN (Urea Nitrogen) 21 mg/dL (9.8-20.1); Calc. Creatinine Clearance 0 mL/min (70-130); Calcium 9.6 mg/dL (7.8-10.44); Carbon Dioxide 17 mmol/L (23-31); Chloride 102 mmol/L (98-107); Glucose 86 mg/dL (83-110); Potassium 6.2 mmol/L (3.5-5.1); Sodium 128 mmol/L (136-145)
[2021-01-20] MEDS ORDERED: Dextrose 50% Abboject 50 ML SYRINGE SLOW IVP PRN (06:37)
[2021-01-20] MEDS ORDERED: Insulin Regular 300 UNITS/3 ML VIAL IVP SCH (06:45)
[2021-01-20 07:00] LABS: #Basophils 0.1 thou/uL (0.0-0.2); #Eosinphils 0.5 thou/uL (0.0-0.7); #Lymphocytes 2.1 thou/uL (1.20-3.40); #Monocytes 0.7 thou/uL (0.11-0.59); #Neutrophils 4.3 thou/uL (1.40-6.50); %Basophils 1.5 % (0.0-1.0); %Eosinophils 6.9 % (0.0-10.0); %Monocytes 8.6 % (0.0-10.0); %Neutrophils 55.9 % (42.0-75.0); Hemoglobin 11.4 g/dL (12.0-16.0); Mean Corpuscular HGB CONC 33.3 g/dL (32.0-36.0); Mean Corpuscular Hemoglobin 31.1 pg (27.0-31.0); Mean Corpuscular Volume 93.6 fL (78.0-98.0); Mean Platelet Volume 6.7 fL (7.4-10.4); Platelet Count 428 thou/uL (130-400); Red Blood Cell (RBC) Count 3.67 mill/uL (4.20-5.40); White Blood Cell (WBC) Count 7.8 thou/uL (4.8-10.8)
[2021-01-20 07:19] LABS: Anion Gap 12 mmol/L (10-20); BUN (Urea Nitrogen) 21 mg/dL (9.8-20.1); Calc. Creatinine Clearance 0 mL/min (70-130); Calcium 9.5 mg/dL (7.8-10.44); Carbon Dioxide 21 mmol/L (23-31); Chloride 100 mmol/L (98-107); Glucose 113 mg/dL (83-110); Potassium 5.1 mmol/L (3.5-5.1); Sodium 128 mmol/L (136-145)
[2021-01-20] MEDS: Enoxaparin Sodium 30 MG/0.3 ML SYRINGE SC SCH (07:42)
[2021-01-20] MEDS ORDERED: Enoxaparin Sodium 30 MG/0.3 ML SYRINGE ONE (07:43)
[2021-01-20 10:10] LABS: RBC/HPF 0-3 HPF (0-3); Squamous Epithelial 0-3 HPF (0-3); WBC/HPF 21-50 HPF (0-3)
[2021-01-20 10:11] LABS: Bacteria/HPF 1+ HPF (None Seen)
[2021-01-20 14:19] VITALS: BMI 29.8
[2021-01-20] MEDS ORDERED: Sodium Chloride 0.9% 1,000 ML IV SCH (21:30)
[2021-01-20 22:05] LABS: Anion Gap 15 mmol/L (10-20); BUN (Urea Nitrogen) 20 mg/dL (9.8-20.1); Calc. Creatinine Clearance 63 mL/min (70-130); Calcium 9.2 mg/dL (7.8-10.44); Carbon Dioxide 23 mmol/L (23-31); Chloride 95 mmol/L (98-107); Glucose 98 mg/dL (83-110); Potassium 5.2 mmol/L (3.5-5.1); Sodium 128 mmol/L (136-145)
[2021-01-20] MEDS: Sodium Chloride 0.9% 1,000 ML IV SCH (22:21)
[2021-01-20] MEDS: ALPRAZolam 1 MG TAB PO PRN (23:13)
[2021-01-20] MEDS: DULoxetine 60 MG CAP PO SCH (23:14)
[2021-01-20] MEDS ORDERED: DULoxetine 60 MG CAP PO SCH (23:15)
[2021-01-21 04:57] LABS: #Basophils 0.1 thou/uL (0.0-0.2); #Eosinphils 0.5 thou/uL (0.0-0.7); #Lymphocytes 1.8 thou/uL (1.20-3.40); #Monocytes 0.6 thou/uL (0.11-0.59); #Neutrophils 3.5 thou/uL (1.40-6.50); %Basophils 1.1 % (0.0-1.0); %Eosinophils 7.4 % (0.0-10.0); %Monocytes 9.4 % (0.0-10.0); %Neutrophils 54.1 % (42.0-75.0); Mean Corpuscular HGB CONC 33.5 g/dL (32.0-36.0); Mean Corpuscular Hemoglobin 30.9 pg (27.0-31.0); Mean Corpuscular Volume 92.2 fL (78.0-98.0); Mean Platelet Volume 6.8 fL (7.4-10.4); Platelet Count 370 thou/uL (130-400); RBC Distribution Width 14.9 % (11.5-14.5); Red Blood Cell (RBC) Count 3.24 mill/uL (4.20-5.40); White Blood Cell (WBC) Count 6.5 thou/uL (4.8-10.8)
[2021-01-21 05:12] LABS: Anion Gap 14 mmol/L (10-20); BUN (Urea Nitrogen) 20 mg/dL (9.8-20.1); Calc. Creatinine Clearance 77 mL/min (70-130); Calcium 8.9 mg/dL (7.8-10.44); Carbon Dioxide 21 mmol/L (23-31); Chloride 97 mmol/L (98-107); Glucose 78 mg/dL (83-110); Potassium 4.7 mmol/L (3.5-5.1); Sodium 127 mmol/L (136-145)
[2021-01-21] MEDS: Levothyroxine Sodium 88 MCG TAB PO SCH (06:03)
[2021-01-21] MEDS: Aripiprazole 10 MG TAB PO SCH (08:21)
[2021-01-21] MEDS: Bupropion 150 MG XL TAB PO SCH (08:21)
[2021-01-21] MEDS: Magnesium Oxide 400 MG TAB PO SCH ×2 (08:21→21:00)
[2021-01-21] MEDS: Gabapentin 300 MG CAP PO SCH ×2 (08:21→21:00)
[2021-01-21] MEDS: Cholecalciferol 1,000 UNITS (25 MCG) TAB PO SCH (08:22)
[2021-01-21] MEDS: Enoxaparin Sodium 30 MG/0.3 ML SYRINGE SC SCH (08:22)
[2021-01-21] MEDS: Cyanocobalamin (Vitamin B-12) 1,000 MCG TAB PO SCH (08:22)
[2021-01-21] MEDS: Ferrous Sulfate 325 MG TAB PO SCH ×2 (08:22→21:00)
[2021-01-21] MEDS: Ascorbic Acid 500 mg Chewable Tablet PO SCH (08:22)
[2021-01-21] MEDS ORDERED: Floranex Packet PO SCH (09:00)
[2021-01-21] MEDS: Sodium Chloride 0.9% 1,000 ML IV SCH (14:22)
[2021-01-21] MEDS: DULoxetine 60 MG CAP PO SCH (21:00)
[2021-01-21] MEDS: ALPRAZolam 1 MG TAB PO PRN (21:00)
[2021-01-21] MEDS ORDERED: oxyCODONE 5 MG TAB PO SCH (21:15)
[2021-01-22] MEDS: Levothyroxine Sodium 88 MCG TAB PO SCH (06:10)
[2021-01-22] MEDS ORDERED: oxyCODONE 5 MG TAB PO PRN (08:39)
[2021-01-22] MEDS ORDERED: Sodium Chloride 1 GM TAB PO SCH (09:00)
[2021-01-22 09:26] LABS: Anion Gap 14 mmol/L (10-20); BUN (Urea Nitrogen) 18 mg/dL (9.8-20.1); Calc. Creatinine Clearance 81 mL/min (70-130); Calcium 9.4 mg/dL (7.8-10.44); Carbon Dioxide 22 mmol/L (23-31); Chloride 95 mmol/L (98-107); Glucose 89 mg/dL (83-110); Potassium 4.8 mmol/L (3.5-5.1); Sodium 126 mmol/L (136-145)
[2021-01-22] MEDS: Ferrous Sulfate 325 MG TAB PO SCH (09:29)
[2021-01-22] MEDS: Ascorbic Acid 500 mg Chewable Tablet PO SCH (09:29)
[2021-01-22] MEDS: Magnesium Oxide 400 MG TAB PO SCH (09:29)
[2021-01-22] MEDS: Cyanocobalamin (Vitamin B-12) 1,000 MCG TAB PO SCH (09:29)
[2021-01-22] MEDS: Gabapentin 300 MG CAP PO SCH (09:29)
[2021-01-22] MEDS: Enoxaparin Sodium 30 MG/0.3 ML SYRINGE SC SCH (09:30)
[2021-01-22] MEDS: Bupropion 150 MG XL TAB PO SCH (09:30)
[2021-01-22] MEDS: Cholecalciferol 1,000 UNITS (25 MCG) TAB PO SCH (09:30)
[2021-01-22] MEDS: Aripiprazole 10 MG TAB PO SCH (09:30)
[2021-01-22 10:31] VITALS: BP 116/56; TEMP 98.4
== END 2021-01-22 11:58 | disposition short-term general hospital (02) | DRG 683 ==
LOC: ERS 23:17 → ERHOLD 01-20 01:15 → 2NO 01-20 14:20
PROVIDERS: ADMIT Student in an Organized Health Care Education/Training Program; ATTEND Emergency Medicine
DX: N17.9 Acute kidney failure, unspecified (principal); E87.1 Hypo-osmolality and hyponatremia; K94.09 Other complications of colostomy; E87.2 Acidosis; G89.29 Other chronic pain; E03.9 Hypothyroidism, unspecified; N18.9 Chronic kidney disease, unspecified; E87.5 Hyperkalemia; I12.9 Hypertensive chronic kidney disease with stage 1 through stage 4 chronic kidney disease, or unspecified chronic kidney disease; M54.9 Dorsalgia, unspecified; Y83.3 Surgical operation with formation of external stoma as the cause of abnormal reaction of the patient, or of later complication, without mention of misadventure at the time of the procedure; Z90.49 Acquired absence of other specified parts of digestive tract
CPT/HCPCS: 36415; 80048; 81015; 85025; 99285; J1650; J7070